=== PATIENT | female | born 1975 | race African-American/Black ===

== ENCOUNTER 2023-10-04 08:26 | Outpatient (REF) | payer OTHER, SELFPAY ==
[2023-10-04 08:54] LABS: MANUAL DIFF FLAG NO
[2023-10-04 09:30] LABS: Basophils Percent Auto 0.3 % (0-2); Eosinophils Absolute Auto 0.1 X10*3/uL (0.0-0.4); Eosinophils Percent Auto 4.4 % (0-4); Hematocrit 35.5 % (37.0-47.0); Hemoglobin 11.9 g/dl (12.0-16.0); Imm Gran Abs Auto 0.01 X10*3/uL (0.00-0.03); Imm Gran Pct Auto 0.3 % (0.0-0.4); Lymphocytes Absolute Auto 1.1 X10*3/uL (1.2-4.9); Lymphocytes Percent Auto 34.6 % (20-40); Mean Corpuscular HGB Conc 33.5 g/dl (31.0-35.0); Mean Corpuscular Hemoglobin 32.5 pg (27.0-33.0); Monocytes Absolute Auto 0.3 X10*3/uL (0.1-1.2); Monocytes Percent Auto 7.9 % (2-11); Neutrophils Absolute Auto 1.7 x10*3/uL (2.0-8.3); Neutrophils Percent Auto 52.5 % (45-73); Platelet Count 188 X10*3/uL (160-400); Red Blood Count 3.66 X10*6/uL (4.20-5.50); Red Cell Distribution Width 12.3 % (11.0-16.0); White Blood Count 3.2 X10*3/uL (4.8-10.8)
[2023-10-04 09:50] LABS: Sickle Cell Scr NEGATIVE (NEGATIVE)
[2023-10-04 10:03] LABS: Alanine Aminotransferase 10 U/L (0-31); Albumin Level 4.3 g/dL (3.5-5.0); Alkaline Phosphatase 55 U/L (39-117); Anion Gap 10 (12-20); Aspartate Amino Transferase 16 U/L (5-31); Bilirubin Total 0.5 mg/dL (0.0-1.0); Blood Urea Nitrogen 11 mg/dL (9-16); Calcium 9.3 mg/dL (8.4-10.2); Carbon Dioxide 23 mmol/L (22-29); Chloride 110 mmol/L (96-108); Estimated Glomerular Filt Rate > 60; Glucose Random 82 mg/dL (60-115); Iron 128 mcg/dL (30-160); Percent Iron Saturation 54 % (15-50); Potassium 4.2 mmol/L (3.3-5.1); Sodium 139 mmol/L (135-145); Total Iron Binding Capacity 238 mcg/dL (228-428); Total Protein 7.3 g/dL (6.5-8.0); Unsaturated Iron Binding 110 ug/dL
== END 2023-10-04 08:27 | disposition home or self-care (01) ==
LOC: HO.LAB 08:26
PROVIDERS: PCP Internal Medicine; Visit Provider Internal Medicine
DX: Z86.2 Personal history of diseases of the blood and blood-forming organs and certain disorders involving the immune mechanism (principal)
CPT/HCPCS: 36415; 80053; 83540; 85025; 85660

== ENCOUNTER 2023-10-25 08:59 | Outpatient (REF) | payer OTHER, SELFPAY ==
[2023-10-25 09:13] LABS: MANUAL DIFF FLAG NO
[2023-10-25 09:51] LABS: Basophils Percent Auto 0.6 % (0-2); Eosinophils Absolute Auto 0.2 X10*3/uL (0.0-0.4); Eosinophils Percent Auto 4.4 % (0-4); Hematocrit 39.2 % (37.0-47.0); Hemoglobin 12.9 g/dl (12.0-16.0); Imm Gran Abs Auto 0.01 X10*3/uL (0.00-0.03); Imm Gran Pct Auto 0.3 % (0.0-0.4); Lymphocytes Absolute Auto 1.5 X10*3/uL (1.2-4.9); Lymphocytes Percent Auto 40.8 % (20-40); Mean Corpuscular HGB Conc 32.9 g/dl (31.0-35.0); Mean Corpuscular Hemoglobin 32.2 pg (27.0-33.0); Mean Corpuscular Volume 97.8 fL (80.0-98.0); Monocytes Absolute Auto 0.3 X10*3/uL (0.1-1.2); Monocytes Percent Auto 8.5 % (2-11); Neutrophils Absolute Auto 1.7 x10*3/uL (2.0-8.3); Neutrophils Percent Auto 45.4 % (45-73); Platelet Count 187 X10*3/uL (160-400); Red Blood Count 4.01 X10*6/uL (4.20-5.50); White Blood Count 3.6 X10*3/uL (4.8-10.8)
== END 2023-10-25 09:00 | disposition home or self-care (01) ==
LOC: HO.LAB 08:59
PROVIDERS: PCP Internal Medicine; Visit Provider Internal Medicine
DX: Z86.2 Personal history of diseases of the blood and blood-forming organs and certain disorders involving the immune mechanism (principal)
CPT/HCPCS: 36415; 85025

== ENCOUNTER 2024-06-23 08:23 | Outpatient (AMB) | payer OTHER, SELFPAY ==
--- NOTE | 2024-06-23 08:24 | MHC.OFFVIS ---
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 Install And Repair Technician Required: No Rim Fire Priming Tool Setter: Rim Fire Priming Tool Setter Present (Carole) Accompanied by: Self / Same As Patient Allergies lidocaine Adverse Reaction (Verified 06/23/24 08:30) Seizure HPI Comments Details: Presenting for annual exam. No complaints. Last Pap/HPV was last year, no records available but according to patient had high-grade lesion, the patient is status post hysterectomy Last Mammogram was in 08/15 No Previous screening colonoscopy, the patient is scheduled in 09/16 [facility] Medical History (Updated 06/23/24 @ 08:40 by Jake Freeman MD) JULIA III (cervical intraepithelial neoplasia grade III) with severe dysplasia Surgical History H/O: hysterectomy Family History Paternal Aunt Breast cancer Paternal Aunt Cervical cancer Female Reproductive History Menstrual Total pregnancies: 2 Full term: 2 Ab induced: 1 Review of Systems Const All systems reviewed & are unremarkable except as noted in HPI and below Card Reports as per HPI and Reports no additional complaints Resp Reports as per HPI and Reports no additional complaints GI Reports as per HPI and Reports no additional complaints Reports as per HPI Physical Exam Vital Signs: Last Vital Signs BP 120/74 06/23/24 08:30 BMI result Body Mass Index 28.5 Const General: cooperative, healthy appearing and comfortable General: Yes bladder normal to palpation External Female Exam: No lesion Speculum Exam - Vagina: normal appearance of the vagina, normal vaginal discharge and not erythematous Speculum Exam - Cervix: Cervix absent Bimanual exam- vagina & uterus: bladder normal to palpation and uterus absent Bimanual Exam- Adnexa, other: Other (No masses detected) Assessment & Plan Assessment & Plan (1) Well woman exam: Code(s): Z01.419 - Encounter for gynecological examination (general) (routine) without abnormal findings Category: Medical Plan: Vaginal Co testing done since the patient has history of high-grade cervical lesion. Counseled the patient about the recommended dietary allowance of 1200 mg of Calcium & 600 IU of vitamin D. Mammogram ordered. The patient is scheduled with GI for screening colonoscopy in 09/15 . The patient was instructed to perform monthly self-breast exams and schedule annual exam in a year. All questions answered and the patient verbalized understanding. Orders: Orders MM tomosynthesis screening BI Today Z12.31 - Encounter for screening mammogram for malignant neoplasm of breast Coding Level of Care Code Est Pt Prev Care 40-64y(50716) Diagnoses Well woman exam Z01.419
[2024-06-23 08:30] VITALS: BP 120/74; BMI 28.5
== END 2024-06-23 08:47 | disposition home or self-care (01) ==
PROVIDERS: PCP Internal Medicine; Visit Provider Obstetrics & Gynecology
DX: Z01.419 Encounter for gynecological examination (general) (routine) without abnormal findings (principal)
CPT/HCPCS: 99396

== ENCOUNTER 2024-06-23 08:23 | Outpatient (REF) | payer OTHER, SELFPAY ==
[2024-06-23 13:54] LABS: HPV 16,18/45 See PAP report
== END 2024-06-23 08:24 | disposition home or self-care (01) ==
LOC: HO.LNP 08:23
PROVIDERS: PCP Internal Medicine; Visit Provider Obstetrics & Gynecology
DX: Z01.419 Encounter for gynecological examination (general) (routine) without abnormal findings (principal)
CPT/HCPCS: 87624; 88175

== ENCOUNTER 2024-06-30 08:34 | Outpatient (REF) | payer OTHER, SELFPAY ==
[2024-06-30 08:54] LABS: MANUAL DIFF FLAG NO
[2024-06-30 09:17] LABS: Basophils Percent Auto 0.5 % (0-2); Eosinophils Absolute Auto 0.1 X10*3/uL (0.0-0.4); Eosinophils Percent Auto 2.8 % (0-4); Hematocrit 36.1 % (37.0-47.0); Imm Gran Abs Auto 0.01 X10*3/uL (0.00-0.03); Imm Gran Pct Auto 0.3 % (0.0-0.4); Immature Retic Fraction 9.9 % (3.0-15.9); Lymphocytes Absolute Auto 1.2 X10*3/uL (1.2-4.9); Lymphocytes Percent Auto 31.3 % (20-40); Mean Corpuscular HGB Conc 33.2 g/dl (31.0-35.0); Mean Corpuscular Hemoglobin 32.4 pg (27.0-33.0); Mean Corpuscular Volume 97.6 fL (80.0-98.0); Mean Platelet Volume 9.8 fL (9.4-12.3); Monocytes Absolute Auto 0.3 X10*3/uL (0.1-1.2); Neutrophils Absolute Auto 2.2 x10*3/uL (2.0-8.3); Neutrophils Percent Auto 57.1 % (45-73); Platelet Count 229 X10*3/uL (160-400); Red Cell Distribution Width 13.4 % (11.0-16.0); Retic HGB Equivalent 35.9 pg (30.0-35.0); Reticulocyte Percent 2.3 % (0.5-1.8); Reticulocytes Absolute 0.084 X10*6/uL (0.026-0.095); White Blood Count 3.9 X10*3/uL (4.8-10.8)
[2024-06-30 09:36] LABS: Haptoglobin 10 mg/dL (35-250)
[2024-06-30 09:46] LABS: Alanine Aminotransferase 13 U/L (0-31); Albumin Level 4.4 g/dL (3.5-5.0); Alkaline Phosphatase 53 U/L (39-117); Anion Gap 12 (12-20); Aspartate Amino Transferase 19 U/L (5-31); Bilirubin Total 0.5 mg/dL (0.0-1.0); Blood Urea Nitrogen 12 mg/dL (9-16); Calcium 9.5 mg/dL (8.4-10.2); Carbon Dioxide 25 mmol/L (22-29); Chloride 105 mmol/L (96-108); Estimated Glomerular Filt Rate > 60; Glucose Random 80 mg/dL (60-115); Iron 92 mcg/dL (30-160); Percent Iron Saturation 37 % (15-50); Sodium 138 mmol/L (135-145); Total Iron Binding Capacity 247 mcg/dL (228-428); Total Protein 7.4 g/dL (6.5-8.0); Unsaturated Iron Binding 155 ug/dL
[2024-06-30 10:11] LABS: Ferritin 334 ng/mL (10-250)
[2024-06-30 10:13] LABS: Vitamin B12 522 pg/mL (200-900)
== END 2024-06-30 08:35 | disposition home or self-care (01) ==
LOC: HO.LAB 08:34
PROVIDERS: Absent Provider Internal Medicine Hematology; PCP Internal Medicine; Visit Provider Obstetrics & Gynecology
DX: D58.9 Hereditary hemolytic anemia, unspecified (principal); D70.9 Neutropenia, unspecified
CPT/HCPCS: 36415; 80053; 82607; 82728; 82746; 83010; 83540; 85025; 85045

== ENCOUNTER 2024-09-12 08:55 | Day surgery (SDC) | payer OTHER, SELFPAY ==
[2024-09-10 14:53] VITALS: BMI 28.0
[2024-09-12 09:36] VITALS: BP 105/68; PULSE 85; RESP 14; TEMP 37; O2SAT 99; BMI 26.2
[2024-09-12] MEDS: Lactated Ringers 1,000 ML 80 ML IVCONT (09:48)
--- NOTE | 2024-09-12 10:37 | P.CONAN_ITS ---
HPI - Anesthesia Eval Consult details Narrative: colon screen [facility] Active Problems Active Problems: All Active Problems Well woman exam (Acute) Past Medical History Medical History History of anemia Constipation JULIA III (cervical intraepithelial neoplasia grade III) with severe dysplasia Family History Family History Paternal Aunt Breast cancer Paternal Aunt Cervical cancer Family history of problems with anesthesia: No Surgical History Surgical History Hx of umbilical hernia repair H/O: hysterectomy History of Problems with Anesthesia: No Social History Social History Are you a primary long term acute care registered nurse to a significant other at home: No Do you presently have visiting nurse or other home services: No Patient Tobacco Use Status: Never used Tobacco Use of substances other than those prescribed or required for medical reasons: No Have you been hit, kicked, punched, or otherwise hurt by someone within the past year? If so, by whom?: No Are you DNR?: No Advance Directives: No Advance Directives Information Provided: Yes Recently lost weight without trying: No Patient : No Meds Allergies Allergy/AdvReac Type Severity Reaction Status Date / Time lidocaine AdvReac Seizure Verified 09/12/24 09:28 Active Medications: Current Medications Lactated Ringer's (Lr) 1,000 mls @ 80 mls/hr IVCONT .[id number] [facility] Last Admin: 09/12/24 09:48 Dose: 80 mls/hr Sodium Biphosphate/Sodium Phosphate (Sodium Phosphate,[place]-Dibasic 133 Ml Enema) 133 ml [place] ONCE PRN PRN Reason: Poor Colonoscopy Prep Results Home Medications ?Medication ?Instructions ?Recorded ?Confirmed ?Last Taken ?Type folic acid 1 mg tablet 1 mg PO DAILY 06/23/24 09/10/24 Unknown History Exam Height,Weight and Vital Signs: Height 5 ft 5.5 in Weight 72.575 kg Last Vital Signs Temp 98.6 F 09/12/24 09:36 Pulse 85 09/12/24 09:36 Resp 14 02/21/25 09:36 BP 105/68 09/12/24 09:36 Pulse Ox 99 09/12/24 09:36 O2 Del Method Room Air 09/12/24 09:36 Airway Mallampati Class: II TM Dist: >3cm Neck ROM: Full Heart: rrr Lungs: cta Assessment and Plan Assessment Anesthesia Assessment: Anesthesia Plan Discussed Final Anesthetic Review Family History of Problems with Anesthesia: No History of Problems with Anesthesia: No NPO: Yes ASA Class: I Final Preanesthetic Review: No Changes in Pt Med Stat, Meds/Allgs Chart Reviewed, Consent Obtained/Reviewed and Anes Risks/Benef Reviewed Patient Risk: Low Procedure Risk: Low Anesthetic Plan Anesthetic Plan: MAC: Disposition: Standard PACU
[2024-09-12 11:34] VITALS: BP 92/61; PULSE 100; RESP 12; TEMP 36.2; O2SAT 97
--- NOTE | 2024-09-12 11:39 | PM.OP ---
Brief Operative Note Date of Service: 09/12/24 Pre-op diagnosis: Screening Post-op diagnosis: other (Diverticulosis) Procedure: Colonoscopy to the cecum and TI Surgeon: Hector Pierson MD Anesthesia: MAC Was an Wrecker Operator used for this Procedure?: No Estimated blood loss (mL): 0 Pathology: none sent Condition: stable Disposition: PACU
[2024-09-12 11:49] VITALS: BP 111/79; PULSE 100; RESP 15; TEMP 36.3; O2SAT 98
--- NOTE | 2024-09-12 22:03 | OP_ITS ---
DATE OF SERVICE: 09/12/2024 SURGEON: Hector Pierson MD INDICATIONS: The patient presents for evaluation of colorectal cancer screening. Full consent has been obtained from her for this, including risks of bleeding and perforation. PREOPERATIVE DIAGNOSIS: Colorectal cancer screening. POSTOPERATIVE DIAGNOSIS: PROCEDURE PERFORMED: Colonoscopy to the cecum and terminal ileum. ESTIMATED BLOOD LOSS: COMPLICATIONS: ANESTHESIA: Medication used; monitored anesthesia care. ASSISTANTS: SPECIMENS: POSTOPERATIVE DIAGNOSES: Colorectal cancer screening, occasional sigmoid diverticulosis, and small internal hemorrhoids. DESCRIPTION OF PROCEDURE: The patient was placed in the left lateral decubitus position. The digital rectal exam revealed no abnormalities. The Olympus video pediatric colonoscope was entered into the rectum and advanced easily to the cecum, although, the sigmoid colon was rather redundant consistent with her chronic constipation. Once in the cecum, I did identify normal-appearing cecal pouch with appendiceal orifice and a normal-appearing ileocecal valve. The terminal ileum was cannulated and appeared normal. The scope was withdrawn back in the colon. The entire cecum and ileocecal valve appeared normal. The scope was slowly withdrawn assessing all mucosal surfaces carefully. Preparation was excellent after her two day bowel prep. I did not visualize any sign of polyps, colitis, nor angiodysplasia. There was a mild amount of sigmoid diverticulosis. In the rectum, scope was retroflexed visualizing internal hemorrhoids, but no other pathology. The rectal mucosa appeared normal. The scope was straightened and withdrawn from the patient. She tolerated the procedure well and was returned to recovery area in stable condition. IMPRESSION: 1. Mild diverticulosis. 2. Small internal hemorrhoids. PLAN: Given today's negative exam and negative family history, I would recommend a followup coloscopy in 10 years. She was advised to use a regimen of some MiraLax and/or Metamucil on a regular basis to help with her constipation and to see me again as needed. Hector Pierson MD RMW/CHAPARROL / [id number] MTDD
== END 2024-09-12 12:21 | disposition home or self-care (01) ==
PROVIDERS: PCP Internal Medicine; Visit Provider Internal Medicine
PROC: 0DJD8ZZ Inspection of Lower Intestinal Tract, Via Natural or Artificial Opening Endoscopic (ICD-10-PCS; CPT 45378; principal; 2024-09-12 11:00)
DX: Z12.11 Encounter for screening for malignant neoplasm of colon (principal); K57.30 Diverticulosis of large intestine without perforation or abscess without bleeding; K64.8 Other hemorrhoids; K59.09 Other constipation; Z79.899 Other long term (current) drug therapy; Z90.711 Acquired absence of uterus with remaining cervical stump; Z98.890 Other specified postprocedural states
CPT/HCPCS: 45378; J2704

== ENCOUNTER 2024-10-06 10:31 | Outpatient (REF) | payer OTHER, SELFPAY ==
--- OUTSIDE RECORDS SUMMARY | 2024-10-06 11:52 | XMS_ITS ---
Author Organization Tino Mullins MD Address [address] [place] [address] [place] [phone] Care Team Providers Care Celery Tier Name Role Phone Tino Mullnis Primary Care Provider REASON FOR VISIT Found lump under ? arm Encounters Encounter Location Date Provider Diagnosis Tino Mullins MD [address] [place] [address] [place] [id number] 02/28/2024 Tino Mullins Plan Of Treatment Next Appt Details Provider Name:Tino Britt ier, 12/25/2024 08:00:00 AM, [address] [place] [address], Suite [facility], [place], [place], [phone], Provider Name:Tino Britt ier, 01/01/2025 01:00:00 PM, [address] [place] [address], [place] [address], [place], [place], [phone], Progress Notes * Sean PEREZBienvenidoB:1975 ( 48 yo F)Acc No.[id number]:02/28/2024 Patient:?Di Perez :1975???Age:48 Y???Sex:Female Address:[address] [place] [address], [address] * true * Date:? Generated for Printi ng/Faxing/eTransmitting on:?10/06/2024 11:51 AM EDT
--- OUTSIDE RECORDS SUMMARY | 2024-10-06 11:52 | XMS_ITS | Patient Health Record ---
Author Organization Tino Mullins MD Address [address] [place] [phone] Care Team Providers Care Transportation Security Screener Name Role Phone Tino Mullins Primary Care Provider Allergies Allergen (clinical drug ingredient) Drug/Non Drug Allergy documented on EMR Reaction Allergy Type Onset Date Status lidocaine Lidocaine seizure Drug Allergy Active Results Component Value Reference Range Notes Pap Smear Reviewed date:06/26/2024 03:28:26 PM Interpretation: Performing Lab:[facility], [address] [place] [id number] Notes/Report: Name: Lavon,Di Guzman Age/Sex: 49/F : 1975 Unit#: [id number] Attend Dr: Jake Freeman MD Re06/23/24 Status : DEP REF Location: [facility] Disch: SPEC : [id number] REC STATUS: LISA GLASS NUM: [id number] MIGUEL: 06/23/[address] [facility] [address]: Jake Freeman MD ENTERED: 06/23/24-13 43 SP TYPE: Pap Smr OTHR DR: Tino Mullins MD ORDERED: Pap Smear Interpretation Satisfactory for evaluation. Negative for intraep ithelial lesion or malignancy. HPV High Risk: Negative HPV Genotyping 16: Negative HPV Genotyping 18: Negative Clinical Information LMP: Hysterectomy Previous PAP test: U nknown date/findings Material Received ThinPrep-Vaginal Copies To: Tino Mullins MD [facility] [address] [place] [address] Jake Freeman MD [facility] [address] [place] [address] Signed (si day[place] on file) PIO Mazariegos (ASCP) 06/26/24 1241 END OF REPORT Reason For Referral Reason colon cancer screeni ng needs colonoscopy Diagnosis 1 Colon cancer screeni ng (Z12.11) Referral Organization Tino Mullins MD Referring Provider First Name Tino Referring Provider Last Name Harpreet Referring Provider Speciality Internal M edicine Referred Provider Hector Mazariegos Referred Provider Specialty Gastroentero logy General Notes Christine Wright 12:02:43 PM EDT > info faxed , Christine Wright 01/04/2024 08:19:56 AM EDT > info mailed to patient, Carleen Chavez 06/23/2024 02:35:00 PM EST > OFFICE NOTES RECD Referral Priority Routine Referral Appointment Date 05/14/2024 Reason per 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, was told a doctor to doctor must be sent Diagnosis 1 H/O: hysterectomy (Z 90.710) Referral Organization Tino Mullins MD Referring Provider First Name Tino Referring Provider Last Name Harpreet Referring Provider Speciality Internal edicine Referred Provider JAKE FREEMAN Referred Provider Specialty OB - Gynecol ogy General Notes Christine Wright 11:22:06 AM EDT > patient will be taking care of her own appt Referral Priority Routine Medications Medication SIG (Take, Route, Frequency, Duration) Notes Start Date End Date Status Folic Acid 400 MCG 1 tablet Orally Once a day for 30 day(s) Active Triamcinolone Acetonide 0.1 % 1 application Externally Once a day for 14 days 12/28/2023 Active Amoxicillin-Pot Clavulanate 875-125 MG 1 tablet Orally every 12 hrs for 10 days 08/19/2024 Active Social History Tobacco Use: Social History Observation Description Date Details (start date - stop date) Never Smoker NA - NA Tobacco Use/Smoking Question Answer Notes Patient is a nonsmoker Additional Findings: Tobacco Non-User Cu rrent non-smoker, currently using no form of tobacco Alcohol Screen Question Answer Notes Did you have a drink containing alcohol in the p ast year? No Points 0 Interpretation Negative Problems Problem Type SNOMED Code ICD Code Onset Dates Problem Status W/U Status Risk Notes Problem 897800447 Neutropenia, unspecified type (D70.9) Active confirmed Problem 906382399 H/O: hysterectom y (Z90.710) Active confirmed Problem 361035292 History of anemi a (Z86.2) Active confirmed Vital Signs Blood pressure diastolic 58 mm Hg 12/28/2023 Height 67 in 08/19/2024 weight at home is 170 BP not taken no temp Blood pressure systolic 94 mm Hg 12/28/2023 Weight 170 lbs 08/19/2024 weight at home is 170 BP not taken no temp BMI 26.62 kg/m2 08/19/2024 weight at home is 170 BP not taken no temp Encounters Encounter Location Date Provider Diagnosis Tino Mullins MD [address] [place] [phone] 12/28/2023 Tino Mullins History of anemia Z86.2 ; Annual physical exam Z00.00 ; Neutropenia, unspecified type D70.9 ; Mild eczema L30.9 and Depression screening Z13.31 Tino Mullins MD [address] [place] [address] Drive [address] [place] [phone] 10/25/2023 Tino Mullins MD [address] [place] [address] Drive [address] [place] [id number] 02/28/2024 Tino Mullins MD [address] [place] [address] Drive [address] [place] [phone] 08/19/2024 Tino Mullins Acute non-recurrent maxillary sinusitis J01.00 Assessments Encounter Date Diagnosis (ICD Code) Assessment Notes Treatment Notes Treatment Clinical Notes Section Notes 12/28/2023 History of anemia (ICD-10 - Z86.2) stable, will continue to monitor 12/28/2023 Annual physical exam (ICD-10 - Z00.00) labs reviewed and discussed with patient, needs colonoscopy appt with dr mazariegos or hu 08/19/2024 Acute non-recurrent maxillary sinusitis (ICD-10 - J01.00) patient verbalized understandingof medicationand directions for use 12/28/2023 Neutropenia, unspecified type (ICD-10 - D70.9) followed by hematology at [facility] 12/28/2023 Mild eczema (ICD-10 - L30.9) patient verblaized understanding of medicaton and directions for use 12/28/2023 Depression screening (ICD-10 - Z13.31) negative screen Plan Of Treatment Next Appt Details Provider Name:Tino coburn, 12/25/2024 08:00:00 AM, [address] [place] [address], Suite [facility], [place], [place], [phone], Provider Name:Tino coburn, 01/01/2025 01:00:00 PM, [address], [address], [place], [place], [phone], Insurance Providers Payer Name Payer Address Payer Phone Subscriber Number Group Number Insured Name Patient Relationship to Insured Coverage Start Date Coverage End Date [employer] [address] [address] [place] [phone] [id number] Di Perez Self - patient is the insured Medical (General) History Medical History History ICD Code brother and father of non hodkins l ymphoma braca negative
--- OUTSIDE RECORDS SUMMARY | 2024-10-06 11:52 | XMS_ITS ---
Author Organization [facility] Address [address] [place] [phone] Care Team Providers Care Level Vial Inspector Name Role Phone Harpreet ALEGRE, Tino Primary Care Provider Hector Vallejo Unavailable [phone] REASON FOR VISIT screening Encounters Encounter Location Date Provider Diagnosis [facility] [address] [place] [phone] 09/12/2024 Hector Pierson Plan Of Treatment No Information Progress Notes * EMILY VILLATOROADOB:1975 ( 49 yo F)Acc No.[id number]:09/12/2024 COLON WITH MAC Patient:?NELLIE VILLATORO Provider:?Hector Pierson MD :1975???Age:49 Y???Sex:Female D ate:09/12/2024 Address:[address] [place], [place] [phone] Pcp:Tino Mullins MD Subjective: * Chief Complaints: * ???1. Screening. * Medical History:? Objective: * Vitals:? Assessment: Plan: * Treatment: * * The named appointment provid er may or may not be the originator of this progress note, and it is not deemed complete until electronically signed by the appointment provider. Sign off status: Pending * Provider:?Hector Pierson MD Date:? 025 Generated for David woodward/Fabillyg/eTransmitting on:?10/06/2024 11:52 AM EDT
--- OUTSIDE RECORDS SUMMARY | 2024-10-06 11:52 | XMS_ITS ---
Author Organization [facility] Address [address] [place] [address] Care Team Providers Care [facility] Program Associate Name Role Phone Tino Mullins MD Primary Care Provider Hector Vallejo Unavailable [phone] Allergies No Known Allergies REASON FOR VISIT Patient presents today for a screening colon Medications Medication SIG (Take, Route, Fr equency, Duration) Notes Start Date End Date Status Folic Acid 400 MCG 1 tablet Orally Once a day for 30 day(s) Active Immunizations Vaccine Route Administration Date Status Comme nts Influenza Unknown 05/14/2024 Refused Social History Tobacco Use: Social History Observation Description Date Details (start date - stop date) Never Smoker NA - NA Tobacco Use/Smoking Question Answer Notes Patient is a nonsmoker Alcohol Screen Question Answer Notes Did you have a drink containing alcohol in the p ast year? No Points 0 Interpretation Negative Section Notes: Nonsmoker; no alcohol Problems Problem Type SNOMED Code ICD Code Onset Dates Problem Status W/U Status Risk Notes Problem Chronic constipation (207517597) Chronic constipation (K59.09) Active confirmed Problem Colon cancer screening (234837974) Colon cancer screening (Z12.11) Active confirmed Vital Signs Temperature 98.0 degrees Fahrenheit 05/14/20 24 Blood pressure systolic 000 mm Hg 05/14/20 24 Blood pressure diastolic 00 mm Hg 024 Height 5 ft 5.5 in in 05/14/2024 Weight 171 lb 4 oz lbs 05/14/2024 BMI 28.06 kg/m2 05/14/2024 Encounters Encounter Location Date Provider Diagnosis [facility] [address] [place] [address] 05/14/2024 Hector Pierson Chronic constipation K59.09 and Colon cancer screening Z12.11 Assessments Encounter Date Diagnosis (ICD Code) Assessment Notes Treatment Notes Treatment Clinical Notes Section Notes 05/14/2024 Chronic constipation (ICD-10 - K59.09) For Constipation: Start using 2 Metamucil fiber pills with a big glass of water once or twice a day regularly Start using 1 dose of Miralax once or twice a day as well Eat a healthy high fiber diet and drink a lot of water Overall, Di appears quite well. In regard to the chronic constipation this does not seem to be worrisome given its long-standing nature and her excellent clinical appearance. Nonetheless, I did advise her that it would be a good idea to try and improve her bowel movement regularity to some degree. I have given her instructions to start a regimen of some Metamucil and MiraLax once or twice a day on a regular basis along with a healthy and high-fiber diet with plenty of fluids. I did advise her to keep me posted as to how she is doing with that. If things continue to be problematic in this regard we can always consider some medication such as Linzess. I did recommend a screening colonoscopy given her age and otherwise good clinical appearance. We did review the rationale for this in regard to colon cancer prevention. Full consent was obtained for this, including risks of bleeding and perforation. The procedure will be done with monitored anesthesia care. She will have a full two-day prep for the procedure given her chronic constipation. Di was comfortable with this plan. Thank you again for allowing me to participate in Di's care. I shall continue to keep you advised of her progress. 05/14/2024 Colon cancer screening (ICD-10 - Z12.11) Overall, Di appears quite well. In regard to the chronic constipation this does not seem to be worrisome given its long-standing nature and her excellent clinical appearance. Nonetheless, I did advise her that it would be a good idea to try and improve her bowel movement regularity to some degree. I have given her instructions to start a regimen of some Metamucil and MiraLax once or twice a day on a regular basis along with a healthy and high-fiber diet with plenty of fluids. I did advise her to keep me posted as to how she is doing with that. If things continue to be problematic in this regard we can always consider some medication such as Linzess. I did recommend a screening colonoscopy given her age and otherwise good clinical appearance. We did review the rationale for this in regard to colon cancer prevention. Full consent was obtained for this, including risks of bleeding and perforation. The procedure will be done with monitored anesthesia care. She will have a full two-day prep for the procedure given her chronic constipation. Di was comfortable with this plan. Thank you again for allowing me to participate in Di's care. I shall continue to keep you advised of her progress. Plan Of Treatment Treatment Notes Assessment Notes Chronic constipation For Constipation: Start using 2 Metamucil fiber pills with a big glass of water once or twice a day regularly Start using 1 dose of Miralax once or twice a day as well Eat a healthy high fiber diet and drink a lot of water Future Test Test Name Order Date COLONOSCOPY 05/14/2024 Next Appt Details Follow Up: prn, Reason: Progress Notes * EMILY VILLATOROADOB:1975 ( 49 yo F)Acc No.[id number]:05/14/2024 Progress Notes Patient:?DI VILLATORO Provider:?Hector Pierson MD :1975???Age:49 Y???Sex:Female D ate:05/14/2024 Address:[address] [place] [address] Pcp:Tino Mullins MD Subjective: * Chief Complaints: * ???Patient presents today fo r a screening colon * HPI: ???incontinence:? I saw Di in consultation today in regard to further evaluation of her chronic constipation and discussion of colorectal cancer screening. ?As you know, Di is a healthy 41-year-old female who presently feels well. She does have a very long-standing history of chronic constipation with a bowel movement about once a week. She does not take any regular bowel regimen but will take occasional things such as prune juice or other whde-evq-obvdypg remedies to help with the bowel movement. She denies any hematochezia, melena, abdominal pain, nausea, nor vomiting. She has never had a colonoscopy. She denies any known family history of colon cancer. ?She enjoys a good appetite. She denies any significant heartburn, dysphagia, early satiety, nor any unintentional weight loss. She has not noticed any signs of jaundice. ?Labs earlier this year showed a hemoglobin 12.9 with a normal MCV, normal chemistries and renal function, a normal iron level of 128, an iron saturation of 54%, and normal LFTs. * ROS:?General/Constitutional:?Change in appetite?denies.?Chills?denies.?Fatigue?denies.?Ophthalmologic:?Comments?all negative.?ENT:?Comments?all negative.?Respiratory:?hemoptysis?denies.?Cough?denies.?Cardiovascular:?Chest pain?denies.?Orthopnea?denies.?Gastrointestinal:?Comments?See HPI for details.?Genitourinary:?Hematuria?denies.?Dysuria?denies.?Musculoskeletal:?Painful joints?denies.?Weakness?denies.?Skin:?Itching?denies.?Rash?denies.?Neurologic:?Headache?denies.?Seizures?denies.?Psychiatric:?Comments?all negative.? * Medical History:? * Surgical History:?Partial hy sterectomy Umbilical hernia * Hospitalization/Major Diagno stic Procedure:?No Hospitalization History. * Family History:?Father: dece ased.?Mother: alive, diagnosed with HTN (hypertension), Diabetes.? No family history of colon cancer or liver cancer. * Social History:?Tobacco Use:?Tobacco Use/Smoking?Patient is a?nonsmoker.?Drugs/Alcohol:?Alcohol Screen?Did you have a drink containing alcohol in the past year??No,?Points?0,?Interpretation?Negative.?Miscellaneous:?Marital status: single. 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 ???Nonsmoker; no alcohol. * Medications:?TakingFolic Aci d 400 MCG Tablet 1 tablet Orally Once a dayMedication List reviewed and reconciled with the patientTaking Folic Acid 400 MCG Tablet 1 tablet Orally Once a dayMedication List reviewed and reconciled with the patient * Allergies:?N.K.D.A.yes[Aller gies Verified] Objective: * Vitals:?Wt: 171 lb 4 oz, Ht: 5 ft 5.5 in, BMI:28.06 Index, BP: 000/00 mm Hg, Temp: 98.0. * Examination: ???General Examination: ?GENERAL APPEARANCE:?pleasant, well nourished, well developed, in no acute distress.?EYES:?sclera non-icteric.?ORAL CAVITY:?mucosa moist.?NECK/THYROID:?no cervical lymphadenopathy, neck supple.?SKIN:?nonjaundiced, no spider angiomata.?HEART:?S1, S2 normal.?LUNGS:?clear to auscultation bilaterally.?ABDOMEN:?normal bowel sounds, no guarding or rigidity, no guarding or rigidity, no masses palpable, soft, nontender, nondistended.?EXTREMITIES:?no edema.?NEUROLOGIC:?alert and oriented.? Assessment: * Assessment: 1.?Chronic constipation - K5 9.09 (Primary)?2.?Colon cancer screening - Z12.11? Overall, Di appears quit e well. In regard to the chronic constipation this does not seem to be worrisome given its long-standing nature and her excellent clinical appearance. Nonetheless, I did advise her that it would be a good idea to try and improve her bowel movement regularity to some degree. I have given her instructions to start a regimen of some Metamucil and MiraLax once or twice a day on a regular basis along with a healthy and high-fiber diet with plenty of fluids. I did advise her to keep me posted as to how she is doing with that. If things continue to be problematic in this regard we can always consider some medication such as Linzess. I did recommend a screening colonoscopy given her age and otherwise good clinical appearance. We did review the rationale for this in regard to colon cancer prevention. Full consent was obtained for this, including risks of bleeding and perforation. The procedure will be done with monitored anesthesia care. She will have a full two-day prep for the procedure given her chronic constipation. Di was comfortable with this plan. Thank you again for allowing me to participate in Di's care. I shall continue to keep you advised of her progress. Plan: * Treatment: 2.?Colon cancer screening?Procedure: COLONOSCOPY (Ordered for 05/14/2024) * Immunizations:? Influenza (Not administered - Refused: Patient decision) * Procedure Codes:?3017F COLOR ECTAL CA SCREEN DOC VCG3051Y TOBACCO [id number] BP SCR NOT PRFRM REC REASON NOS * Preventive Medicine:? ??Counseling:?Care goal follow-up plan:?Above Normal BMI Follow-up?Giving encouragement to exercise,?BMI management provided?Yes.? * Follow Up:?prn * * Sign off status: Completed true * Provider:?Hector Pierson MD Date:? 024 Generated for David woodward/Torey/eTindiasmitting on:?10/06/2024 11:51 AM EDT History and Physical Notes * HPI (History of Present Illness) Category Sub-Category Detail Notes Category Not es incontinence I saw Di in consultation today in regard to further evaluation of her chronic constipation and discussion of colorectal cancer screening. As you know, Di is a healthy 41-year-old female who presently feels well. She does have a very long-standing history of chronic constipation with a bowel movement about once a week. She does not take any regular bowel regimen but will take occasional things such as prune juice or other ivbb-xpu-uovshgu remedies to help with the bowel movement. She denies any hematochezia, melena, abdominal pain, nausea, nor vomiting. She has never had a colonoscopy. She denies any known family history of colon cancer. She enjoys a good appetite. She denies any significant heartburn, dysphagia, early satiety, nor any unintentional weight loss. She has not noticed any signs of jaundice. Labs earlier this year showed a hemoglobin 12.9 with a normal MCV, normal chemistries and renal function, a normal iron level of 128, an iron saturation of 54%, and normal LFTs. Examination Category Sub-Category Detail Notes Category Not es General Examination GENERAL APPEARANCE: pleasant , well nourished, well developed, in no acute distress HEAD: EYES: sclera non-icteric EARS: NOSE: THROAT: NECK/THYROID: no cervical lymphade nopathy, neck supple HEART: S1, S2 normal CHEST: LUNGS: clear to auscultatio n bilaterally ABDOMEN: normal bowel sounds, no guarding or rigidity, no guarding or rigidity, no masses palpable, soft, nontender, nondistended NEUROLOGIC: alert and oriented SKIN: nonjaundiced, no spi deni angiomata EXTREMITIES: no edema PERIPHERAL PULSES: BACK: BREASTS: MUSCULOSKELETAL: MALE GENITOURINARY: LYMPH NODES: RECTAL EXAM: FEMALE GENITOURINARY: ORAL CAVITY: mucosa moist
--- OUTSIDE RECORDS SUMMARY | 2024-10-06 11:52 | XMS_ITS | Clinical Summary ---
Author Organization [facility] Address [address] [place] [address] Care Team Providers Care Bonbon Cream Warmer Name Role Phone Blanca Perez MD Primary Care Provider Surgical History Surgery Date Site/Laterality Comments HERNIA REPAIR PROCEDURE: HISTORICAL HERNIA REPAIR/UMB; COMMENT: age 3 OTHER SURGICAL HISTORY PROCEDURE: ---- OTHER ----; COMMENT: I&D left forearm Medical History Medical History Date Comments Family history of breast cancer DX:Family history of breast cancer; COMMENT: Pt myRisk negative 07/2016 Family history of ovarian cancer DX:Family history of ovarian cancer; COMMENT: PtmyRisk negative 07/2016 Family History Medical History Relation Name Comments Breast cancer Aunt 1 p 42 paternal aunt; Other: ovarian cancer Aunt 2 patern al aunt Asthma Brother 1 Other: non hodgkins lymphoma Brother 2 2013 Leukemia Brother 3 -same brother as #8 Other: non hodgkins lymphoma Father Diabetes Mother Other: Thyroid Cancer Mother Ovarian cancer Other 1 paternal firs t cousin-dx in her 20s- Leukemia Other 2 paternal first cousin Other: brain tumor Sister Prostate cancer Uncle paternal unc le Colon cancer Neg Hx Relation Name Status Comments Aunt 1 p 42 Aunt 2 Brother 1 Brother 2 Brother 3 Father NHL Mother Alive dm, thyroid can cer, Other 1 Other 2 Sister Uncle Social History Tobacco Use Types Packs/Day Years Used Date Smoking Tobacco: Never Smokeless Tobacco: Never Alcohol Use Standard Drinks/Week Comments No 0 (1 standard drink = 0.6 oz pur e alcohol) Comments Unknown Sex and Gender Information Value Date Recorded Sex Assigned at Not on file Legal Sex Female 8:19 PM EST Gender Identity Not on file Sexual Orientation Not on file Obstetrics History Plan of Treatment Health Maintenance Due Date Last Done Comments Hepatitis B Vaccines (1 of 3 - 19+ 3-dose series) 1995 Cervical Cancer Screening: Pap Smear 05/26/2021 05/26/2020 DTaP,Tdap,and Td Vaccines (7 - Td or Tdap) 10/25/2021 10/26/2011, 02/08/2010, 10/01/1978, Additional history exists Breast Cancer Screening 05/17/2022 05/17/20, 05/12/2019, 05/08/2018, Additional history exists Colorectal Cancer Screening: Colonoscopy 06/24/2022 Depression Screening 06/24/2022 HIV Screening 06/24/2022 Hepatitis C Screening 06/24/2022 Social Influencers of Health Screening 06/24/2022 COVID-19 Vaccine ( season) 2024 Influenza Vaccine (#1) 2024 IPV Vaccines Completed 12/27/1981, 02/20, 07/03/1977, Additional history exists Varicella Vaccines Aged Out 02/08/2010 No longer eligible based on patient's age to complete this topic HIB Vaccines Aged Out No longer eligi ble based on patient's age to complete this topic HPV Vaccines Aged Out No longer eligi ble based on patient's age to complete this topic Hepatitis A Vaccines Aged Out No long er eligible based on patient's age to complete this topic MMR Vaccines Aged Out No longer eligi ble based on patient's age to complete this topic Meningococcal ACWY Vaccine Aged Out N o longer eligible based on patient's age to complete this topic Meningococcal B Vacine Aged Out No lo nger eligible based on patient's age to complete this topic Pneumococcal Vaccine: Pediatrics (0 to 5 Years) and At-Risk Patients (6 to 64 Years) Aged Out No longer eligible based on patient's age to complete this topic RSV Immunization Patients Under 20 months Aged Out No longer eligible based on patient's age to complete this topic Procedures Procedure Name Priority Date/Time Associated Diagnosis Comments PAP SMEAR Routine 05/26/2020 SCR MAMMO BI INCL CAD Routine 05/17/2020 5:22 PM EDT Encounter for other screening for malignant neoplasm of breast from Last 3 Months or Most Recently Relevant to Health Maintenance Results * Pap smear (05/26/2020) 05/26/2020 Narrative HISTORICAL TESTING LAB RESULTING AGENCY - 06/04/2020 3:45 PM EST [id number] THINPREP PAP, IMAGED: LOW-GRADE SQUAMOUS INTRAEPITHELIAL LESION (LSIL) . COLEMAN GAYTAN , PIO(ASCP) (CASE SCREENED 06 01 2020) HUBERT SANDS M.D. , PATHOLOGIST (CASE ELECTRONICALLY SIGNED 06 03 2020) RESULT OF APTIMA HIGH RISK HPV ASSAY: HIGH RISK HPV: ??POSITIVE (SEROTYPES 16,18,31,33,35,39,45,51,52,56,58,59,66,68) RESULTS OF APTIMA HPV 16 AND 18/45 GENOTYPE ASSAY: HPV 16: ??NEGATIVE HPV 18/45: ??NEGATIVE COMPLETED ON 2020-06-01 ADEQUACY: SATISFACTORY ENDOCERVICAL/TRANSFORMATION ZONE COMPONENT PRESENT. SOURCE: THINPREP PAP HPV ANY DX: ??REFLEX 16 AND 18, CERVICAL, IMAGED CLINICAL INFORMATION: HPV ANY DIAGNOSIS. PAP HX NEG, LMP 05/11/20, Z12.4 Thony Sharp DO LAB CYTOLOGY ORDERABLES Final Result HISTORICAL TESTING LAB RESULTING AGENCY * SCR MAMMO BI INCL CAD (05/17/2020 5:22 PM EDT) Anatomical Region Laterality Modality Radiographic Cherelle ging 05/12/2019 5:50 PM EDT Narrative 05/18/2020 11:06 AM EDT This is a summary report. The complete report is available in the patient's medical record. If you cannot access the medical record, please contact the sending organization for a detailed fax or copy. Full field digital screening mammography, reviewed with CAD and compared to previous mammograms dating back to 04/25/2016 with most recent of 05/12/2019. The breast tissue is heterogeneously dense, limiting sensitivity. No suspicious mass, architectural distortion or suspicious calcifications are identified. IMPRESSION: : Dense breast tissue, limiting the sensitivity of mammography. No mammographic evidence of malignancy. BIRADS 1-Negative; N. 5 year breast cancer risk assessment 0.8 % Lifetime breast cancer risk assessment 9.4 % Breast cancer risk category Low (<15%) Procedure Note Radha William MD - 07/11/2022 This is a summary report. The complete report is available in thepatient's medical record. If you cannot access the medical record, pleasecontact the sending organization for a detailed fax or copy. Full field digital screening mammography, reviewed with CAD and comparedto previous mammograms dating back to 04/25/2016 with most recent of05/12/2019. The breast tissue is heterogeneously dense, limitingsensitivity. No suspicious mass, architectural distortion or suspiciouscalcifications are identified. IMPRESSION: : Dense breast tissue, limiting the sensitivity of mammography. Nomammographic evidence of malignancy. BIRADS 1-Negative; N. 5 year breast cancer risk assessment 0.8 % Lifetime breast cancer risk assessment 9.4 % Breast cancer risk category Low (<15%) Jacquelyn Montes CNM IMG XR PROCEDURES Final Result from Last 3 Months or Most Recently Relevant to Health Maintenance Care Teams Bonbon Cream Warmer Relationship Specialty Start Date End Date Blanca Perez MD [address] [place] [address] PCP - General Internal Medicine 08/17/11
--- OUTSIDE RECORDS SUMMARY | 2024-10-06 11:52 | XMS_ITS | Patient Health Record ---
Author Organization [facility] Address [address] [place] [address] Care Team Providers Care Real Time Analyst Name Role Phone Tino Mullins MD Primary Care Provider Hector Vallejo [phone] Allergies No Known Allergies Reason For Referral No Information Medications Medication SIG (Take, Route, Fr equency, [...] Problem Status W/U Status Risk Notes Problem Colon cancer screening (751213623) Colon cancer screening (Z12.11) Active confirmed Problem Chronic constipation (630360991) Chronic constipation (K59.09) Active confirmed Vital Signs Temperature 98.0 degrees Fahrenheit 05/14/2024 Blood pressure diastolic 00 mm Hg 05/14/2024 Height 5 ft 5.5 in in 05/14/2024 Blood pressure systolic 000 mm Hg 05/14/2024 Weight 171 lb 4 oz lbs 05/14/2024 BMI 28.06 kg/m2 05/14/2024 Encounters Encounter Location Date Provider Diagnosis [facility] [address] [place], [place] [id number] 09/12/2024 Hcetor Pierson [facility] [address] [place] [address] 05/14/2024 Hector Pierson Chronic constipation K59.09 and Colon cancer screening Z12.11 Assessments Encounter Date Diagnosis (ICD Code) Assessment Notes Treatment Notes Treatment Clinical Notes Section Notes 05/14/2024 Colon cancer screening (ICD-10 - Z12.11) [...] keep you advised of her progress. 05/14/2024 Chronic constipation (ICD-10 - K59.09) For [...] advised of her progress. Plan Of Treatment Future Test Test Name Order Date COLONOSCOPY 05/14/2024 Insurance Providers Payer Name Payer Address Payer Phone Subscriber Number Group Number Insured Name Patient Relationship to Insured Coverage Start Date Coverage End Date [employer] [place] [address] [address] [place] [address] [id number] DI VILLATORO Self - patient is the insured Medical (General) History Medical History History ICD Code Anemia due to previous heavy menses---titus d partial hysterectomy Constipation Denies SD,DM,CVA,Lung disease,renal dise ase Surgical History Surgery Date(Month/Year) Partial hysterectomy Umbilical hernia
--- OUTSIDE RECORDS SUMMARY | 2024-10-06 11:52 | XMS_ITS ---
Author Organization Tino Mullins MD Address [address] [place], [place] [id number] Care Team Providers Care Engineer Steam Name Role Phone Tino Mullins Primary Care Provider [phone] Allergies Allergen (clinical drug ingredient) Drug/Non Drug Allergy documented on EMR Reaction Allergy Type Onset Date Status lidocaine Lidocaine seizure Drug Allergy Active Reason For Referral Reason colon cancer screeni [...] Referral Priority Routine Referral Appointment Date 05/14/2024 REASON FOR VISIT annual visit/ must see 12-07-23, CBACK CBC, check geovanny on left coyle x 1 week Medications Medication SIG (Take, Route, Frequency, Duration) Notes Start Date End Date Status Folic Acid 400 MCG 1 tablet Orally Once a day for 30 day(s) Active Triamcinolone Acetonide 0.1 % 1 application Externally Once a day for 14 days 12/28/2023 Active Social History Tobacco Use: Social History [...] Problem Status W/U Status Risk Notes Problem [id number] Neutropenia, unspecified type (D70.9) Active confirmed Vital Signs Blood pressure systolic 94 mm Hg 12/28/19 24 Blood pressure diastolic 58 mm Hg 024 Height 67 in 12/28/2023 Weight 175 lbs 12/28/2023 BMI 27.41 kg/m2 12/28/2023 Encounters Encounter Location Date Provider Diagnosis Tino Mullins MD [address] [place] [address] [place] [phone] 12/28/2023 Tino Mullins History of anemia Z86.2 ; Annual physical exam Z00.00 ; Neutropenia, unspecified type D70.9 ; Mild eczema L30.9 and Depression screening Z13.31 Assessments Encounter Date Diagnosis (ICD Code) Assessment Notes Treatment Notes Treatment Clinical Notes Section Notes 12/28/2023 History of anemia (ICD-10 - Z86.2) stable, will continue to monitor 12/28/2023 Annual physical exam (ICD-10 - Z00.00) labs reviewed and discussed with patient, needs colonoscopy appt with dr mazariegos or hu 12/28/2023 Neutropenia, unspecified type (ICD-10 - D70.9) followed by hematology at [facility] 12/28/2023 Mild eczema (ICD-10 - L30.9) patient verblaized understanding of medicaton and directions for use 12/28/2023 Depression screening (ICD-10 - Z13.31) negative screen Plan Of Treatment Medication Medication Name Sig Start Date Stop Date Notes Triamcinolone Acetonide 0.1 % 1 applicat ion Externally Once a day for 14 days 12/28/2023 Treatment Notes Assessment Notes History of anemia stable, will continu e to monitor Annual physical exam labs reviewed and d iscussed with patient, needs colonoscopy appt with dr mazariegos or hu Neutropenia, unspecified type followed b y hematology at [facility] Mild eczema patient verblaized u nderstanding of medicaton and directions for use Depression screening negative screen Referrals Referral Date Details 12/28/2023 12/28/2023, colon ca ncer screening needs colonoscopy, Hector Mazariegos Next Appt Details Follow Up: 1 Year, Reason: Provider Name:Tino coburn, 12/25/2024 08:00:00 AM, [address], [address], [place], [phone], Provider Name:Tino coburn, 01/01/2025 01:00:00 PM, [address], [address], [place], [phone], Progress Notes * Sean PEREZBienvenidoB:1975 ( 48 yo F)Acc No.[id number]:12/28/2023 Progress Notes Patient:?Di Perez Provider:?Tino Mullins MD :1975???Age:48 Y???Sex:Female D ate:12/28/2023 Address:[address] [place], [place] [phone] Subjective: * Chief Complaints: * ???Annual visit/ must see CBACK CBCCheck geovanny on left coyle x 1 week * HPI: ???Depression Screening:?PHQ-9?Little interest or pleasure in doing things?Not at all,?Feeling down, depressed, or hopeless?Not at all,?Trouble falling or staying asleep, or sleeping too much?Not at all,?Feeling tired or having little energy?Not at all,?Poor appetite or overeating?Not at all,?Feeling bad about yourself or that you are a failure, or have let yourself or your family down?Not at all,?Trouble concentrating on things, such as reading the newspaper or watching television?Not at all,?Moving or speaking so slowly that other people could have noticed; or the opposite, being so fidgety or restless that you have been moving around a lot more than usual?Not at all,?Thoughts that you would be better off or of hurting yourself in some way?Not at all,?Total Score?0.?Interpretation and Intervention?Depression Screening Findings?Negative,?Follow-Up for Depression?: review of PHQ-9 found negative result, no follow-up needed.?Communication Needs:?Communication Needs?Does the patient have a hearing impairment?No,?Does the patient have a vision impairment??Yes,?If yes, what is the vision impairment??Glasses,?Does the patient have a cognition impairment??No.?SDOH Questions:?SDOH Questions?In the past year have you been worried about losing housing??No,?In the past year have you or any family members you live with been unable to get any of the following when it was really needed? Check all that apply:?None.? * ROS:?General/Constitutional:?Change in appetite?denies.?Chills?denies.?Fever?denies.?Ophthalmologic:?Blurred vision?denies.?Discharge?denies.?Pain?denies.?ENT:?Decreased hearing?denies.?Sore throat?denies.?Swollen glands?denies.?Endocrine:?Cold intolerance?denies.?Excessive thirst?denies.?Heat intolerance?denies.?Weight loss?denies.?Respiratory:?Cough?denies.?Shortness of breath at rest?denies.?Shortness of breath with exertion?denies.?Wheezing?denies.?Cardiovascular:?Chest pain at rest?denies.?Chest pain with exertion?denies.?Irregular heartbeat?denies.?Shortness of breath?denies.?Gastrointestinal:?Abdominal pain?denies.?Change in bowel habits?denies.?Diarrhea?denies.?Nausea?denies.?Rectal bleeding?denies.?Vomiting?denies .?Genitourinary:?Blood in urine?denies.?Difficulty urinating?denies.?Frequent urination?denies.?Urinary incontinence?Denies.?Musculoskeletal:?Painful joints?denies.?Weakness?denies.?Skin:?Patient complaining of?itching on anterior tibia.?Dry skin?denies.?Itching?denies.?Denies?Mole(s),? changes in moles, new moles or any lesions of concern.?Denies?Photosensitivity.?Rash?denies.?Neurologic:?Dizziness?denies.?Fainting?denies.?Headache?denies.? * Medical History:? * Surgical History:? * Hospitalization/Major Diagno stic Procedure:? * Family History:?Father: dece ased 47 yrs.?Mother: alive 74 yrs, diagnosed with Hypertension, Diabetes.?1 brother(s) , 4 sister(s) . 2 son(s) . .? Father Lymphoma 1 aszderu24 Lymphoma. * Social History:?Tobacco Use:?Tobacco Use/Smoking?Patient is a?nonsmoker,?Additional Findings: Tobacco Non-User?Current non-smoker, currently using no form of tobacco.?Drugs/Alcohol:?Alcohol Screen?Did you have a drink containing alcohol in the past year??No,?Points?0,?Interpretation?Negative.?Miscellaneous:?Caffeine: yes, frequency:. Children: yes. no Exercise. Living with: family. Marital status: single. Occupation: weeks/months/years, works full-time. no Travel outside of the [place]. * Medications:?TakingFolic Aci d 400 MCG Tablet 1 tablet Orally Once a dayMedication List reviewed and reconciled with the patientTaking Folic Acid 400 MCG Tablet 1 tablet Orally Once a dayMedication List reviewed and reconciled with the patient * Allergies:?Lidocaine: seizur eyes[Allergies Verified] Objective: * Vitals:?Ht: 67, Wt:175, BMI: 27.41, BP:94/58. * ???Past Orders: Lab:Complete Blood Count Aut o Diff * Order Date 10/25/2023 10/04/2023 Result: see back 12-28-23 White Blood Count 3.6?L (Ref Range: 4.8-10.8 X10*3/uL) 3.2?L (Ref Range: 4.8-10.8 X10*3/uL) Red Blood Count 4.01?L (Ref Range: 4.20-5.50 X10*6/uL) 3.66?L (Ref Range: 4.20-5.50 X10*6/uL) Hemoglobin 12.9 (Ref Range: 12.0-16.0 g/dl) 11.9?L (Ref Range: 12.0-16.0 g/dl) Hematocrit 39.2 (Ref Range: 37.0-47.0 %) 35.5?L (Ref Range: 37.0-47.0 %) Mean Corpuscular Volume 97.8 (Ref Range: 80.0-98.0 fL) 97.0 (Ref Range: 80.0-98.0 fL) Mean Corpuscular Hemoglobin 32.2 (Ref Range: 27.0-33.0 pg) 32.5 (Ref Range: 27.0-33.0 pg) Mean Corpuscular HGB Conc 32.9 (Ref Range: 31.0-35.0 g/dl) 33.5 (Ref Range: 31.0-35.0 g/dl) Red Cell Distribution Width 12.0 (Ref Range: 11.0-16.0 %) 12.3 (Ref Range: 11.0-16.0 %) Platelet Count 187 (Ref Range: 160-400 X10*3/uL) 188 (Ref Range: 160-400 X10*3/uL) Mean Platelet Volume 10.0 (Ref Range: 9.4-12.3 fL) 10.0 (Ref Range: 9.4-12.3 fL) Neutrophils Percent Auto 45.4 (Ref Range: 45-73 %) 52.5 (Ref Range: 45-73 %) Imm Gran Pct Auto 0.3 (Ref Range: 0.0-0.4 %) 0.3 (Ref Range: 0.0-0.4 %) Lymphocytes Percent Auto 40.8?H (Ref Range: 20-40 %) 34.6 (Ref Range: 20-40 %) Monocytes Percent Auto 8.5 (Ref Range: 2-11 %) 7.9 (Ref Range: 2-11 %) Eosinophils Percent Auto 4.4?H (Ref Range: 0-4 %) 4.4?H (Ref Range: 0-4 %) Basophils Percent Auto 0.6 (Ref Range: 0-2 %) 0.3 (Ref Range: 0-2 %) NRBC Pct Auto 0.0 (Ref Range: 0.0-0.2 /100WBC) 0.0 (Ref Range: 0.0-0.2 /100WBC) Neutrophils Absolute Auto 1.7?L (Ref Range: 2.0-8.3 x10*3/uL) 1.7?L (Ref Range: 2.0-8.3 x10*3/uL) Imm Gran Abs Auto 0.01 (Ref Range: 0.00-0.03 X10*3/uL) 0.01 (Ref Range: 0.00-0.03 X10*3/uL) Lymphocytes Absolute Auto 1.5 (Ref Range: 1.2-4.9 X10*3/uL) 1.1?L (Ref Range: 1.2-4.9 X10*3/uL) Monocytes Absolute Auto 0.3 (Ref Range: 0.1-1.2 X10*3/uL) 0.3 (Ref Range: 0.1-1.2 X10*3/uL) Eosinophils Absolute Auto 0.2 (Ref Range: 0.0-0.4 X10*3/uL) 0.1 (Ref Range: 0.0-0.4 X10*3/uL) Basophils Absolute Auto 0.0 (Ref Range: 0.0-0.2 X10*3/uL) 0.0 (Ref Range: 0.0-0.2 X10*3/uL) NRBC Abs Auto 0.000 (Ref Range: 0.0-0.012 X10*3/uL) 0.000 (Ref Range: 0.0-0.012 X10*3/uL) ???Lab:IRON PROFILE (Order Date - 10/04/2023) (Collection Date - 10/04/2023)?ValueReference Range?[id number] - mcg/dL?Total Iron Binding Btcbszto487975-773 - mcg/dL?Percent Iron Mdbeicvkmx65F75-04 - %?Unsaturated Iron Xanzhah779- ug/dL * Examination: ???General Examination: ?GENERAL APPEARANCE:?well developed, well nourished, in no acute distress.?HEAD:?normocephalic, atraumatic.?EYES:?pupils equal, round, reactive to light and accommodation, sclera non-icteric.?EARS:?normal.?ORAL CAVITY:?mucosa moist.?THROAT:?clear.?NECK/THYROID:?neck supple, full range of motion, no cervical lymphadenopathy, no bruits.?SKIN:?warm and dry, no suspicious lesions, abnormal left ant tibia with a 1/2 inch prutitic lesion.?HEART:?regular rate and rhythm, S1, S2 normal, no murmurs.?LUNGS:?clear to auscultation bilaterally.?BREASTS:?No mass, no lump.?ABDOMEN:?soft, nontender, nondistended, bowel sounds present, normal, no organomegaly , no masses palpable.?RECTAL EXAM:?done by diesel engine engineer.?FEMALE GENITOURINARY:?done by diesel engine engineer.?EXTREMITIES:?no clubbing, cyanosis, or edema.?NEUROLOGIC:?nonfocal, motor strength normal upper and lower extremities, sensory exam intact.? Assessment: * Assessment: 1.?Annual physical exam - Z0 0.00 (Primary)?2.?History of anemia - Z86.2?3.?Neutropenia, unspecified type - D70.9?4.?Mild eczema - L30.9?5.?Depression screening - Z13.31? Plan: * Treatment: 2.?History of anemia? Notes: stable, will continue to monitor.?? 3.?Neutropenia, unspecified type? Notes: followed by hematology at [facility].?? 4.?Mild eczema? Start Triamcinolone Acetonide Cream, 0.1 %, 1 application, Externally, Once a day, 14 days, 30.?? Notes: patient verblaized understanding of medicaton and directions for use.?? 5.?Depression screening? Notes: negative screen.?? 6.?Others? Referral To:Hector Mazariegos??Gastroenterology ?Reason:colon cancer screening needs colonoscopy * Procedure Codes:? * Preventive Medicine:? ??Counseling:?Care goal follow-up plan:?Counseling for abnormal BMI provided?Yes,?Above Normal BMI Follow-up?Giving encouragement to exercise.? * Follow Up:?1 Year * * Sign off status: Completed true * Provider:?Tino Mullins MD Date:?0 12/28/2023 Generated for David woodward/Torey/Kyle on:?10/06/2024 11:52 AM EDT History and Physical Notes * HPI (History of Present Illness) Category Sub-Category Detail Notes Category Not es Depression Screening PHQ-9 Little inte rest or pleasure in doing things: Not at all Feeling down, depressed, or hopeless: No t at all Trouble falling or staying asleep, or sl eeping too much: Not at all Feeling tired or having little energy: N ot at all Poor appetite or overeating: Not at all Feeling bad about yourself o r that you are a failure, or have let yourself or your family down: Not at all Trouble concentrating on thi ngs, such as reading the newspaper or watching television: Not at all Moving or speaking so slowly that other people could have noticed; or the opposite, being so fidgety or restless that you have been moving around a lot more than usual: Not at all Thoughts that you would be b nehemias off or of hurting yourself in some way: Not at all Total Score: 0 Interpretation and Intervention Depression Alex wynne Findings: Negative Follow-Up for Depression: : review of PH Q-9 found negative result, no follow-up needed SDOH Questions SDOH Questions In the past year have you been worried about losing housing?: No In the past year have you or any family members you live with been unable to get any of the following when it was really needed? Check all that apply:: None Communication Needs Communication Needs Does the patient have a hearing impairment: No Does the patient have a vision impairmen t?: Yes ?If yes, what is the vision impairment?: Glasses Does the patient have a cognition impair ment?: No Examination Category Sub-Category Detail Notes Category Not es General Examination GENERAL APPEARANCE: well dev eloped, well nourished, in no acute distress HEAD: normocephalic, atrau matic EYES: pupils equal, round, reactive to light and accommodation, sclera non- icteric EARS: normal THROAT: clear NECK/THYROID: neck supple, full ra nge of motion, no cervical lymphadenopathy, no bruits HEART: regular rate and rhy thm, S1, S2 normal, no murmurs LUNGS: clear to auscultatio n bilaterally ABDOMEN: soft, nontender, non distended, bowel sounds present, normal, no organomegaly , no masses palpable NEUROLOGIC: nonfocal, motor stre ngth normal upper and lower extremities, sensory exam intact SKIN: warm and dry, no rigo picious lesions, abnormal left ant tibia with a 1/2 inch prutitic lesion EXTREMITIES: no clubbing, cyanosi s, or edema BREASTS: No mass, no lump RECTAL EXAM: done by diesel engine engineer FEMALE GENITOURINARY: done by diesel engine engineer ORAL CAVITY: mucosa moist Consultation Request Notes Referral Date Referring Provider Referred Provider Not es 12/28/2023 Tino Mullins [facility] screening needs colonoscopy
--- OUTSIDE RECORDS SUMMARY | 2024-10-06 11:52 | XMS_ITS ---
Author Organization Tino Mullins MD Address [address] [place] [phone] Care Team Providers Care Regional Truck Driver Name Role Phone Tino Mullins Primary Care Provider [phone] Allergies Allergen (clinical drug ingredient) Drug/Non Drug Allergy documented on EMR Reaction Allergy Type Onset Date Status lidocaine Lidocaine seizure Drug Allergy Active REASON FOR VISIT cold coughing, congested x 5 days c/o productive cough congestion, runny nose will test for Covid before Telehealth, Video [phone] Medications Medication SIG (Take, Route, Frequency, Duration) Notes Start Date End Date Status Folic Acid 400 MCG 1 tablet Orally Once a day for 30 day(s) Active Triamcinolone Acetonide 0.1 % 1 application Externally Once a day for 14 days 12/28/2023 Active Amoxicillin-Pot Clavulanate 875-125 MG 1 tablet Orally every 12 hrs for 10 days 08/19/2024 Active Vital Signs Height 67 in 08/19/2024 Weight 170 lbs 08/19/2024 BMI 26.62 kg/m2 08/19/2024 weight at home is 170 BP not taken no temp Encounters Encounter Location Date Provider Diagnosis Tino Mullins MD [address] [place] [phone] 08/19/2024 Tino Mullins Acute non-recurrent maxillary sinusitis J01.00 Assessments Encounter Date Diagnosis (ICD Code) Assessment Notes Treatment Notes Treatment Clinical Notes Section Notes 08/19/2024 Acute non-recurrent maxillary sinusitis (ICD-10 - J01.00) patient verbalized understandingof medicationand directions for use Plan Of Treatment Medication Medication Name Sig Start Date Stop Date Notes Amoxicillin-Pot Clavulanate 875-125 MG 1 tablet Orally every 12 hrs for 10 days 08/19/2024 Treatment Notes Assessment Notes Acute non-recurrent maxillary sinusitis patient verbalized understandingof medicationand directions for use Next Appt Details Provider Name:Tino Britt ier, 12/25/2024 08:00:00 AM, [address] [place] [address], [address], [place], [place], [phone], Provider Name:Tino Britt ier, 01/01/2025 01:00:00 PM, [address] [place] [address], [address], [place], [place], [phone], Progress Notes * Dontae PEREZB:1975 ( 49 yo F)Acc No.[id number]:08/19/2024 Patient:?Di PEREZ Provider:?Tino Mullins MD :1975???Age:49 Y???Sex:Female D ate:08/19/2024 Address:[address] [place], [place] [phone] Subjective: * Chief Complaints: * ???cold coughing, congested x 5 days c/o productive cough congestion, runny nose will test for Covid before TelehealthVideo [phone] * HPI: ???Symptom(s):?Telehealth?Location of provider rendering services:?[address] [place] [address], [address],?Location of patient:?at address listed in demographics for today's visit,?Patient identification confirmed using:?Name, ,?Telehealth method:?Video conference where patient is visible to the provider of care,?Consent:?Patient verbally consented to treatment, Patient verbally consented to billing insurance company, Patient informed of any privacy concerns related to method of visit,?Total time spend talking with patient (minutes)?20.?patient is a 49 yo female video telehealth visit, started with sore throat and now with head congestion. getting worse in head. * ROS:?General/Constitutional:?Denies?Chills.?Denies?Fatigue.?Denies?Fever.?Denies?Headache.?ENT:?Patient denies?decreased sense of smell, any loss of taste, sore throat.?Denies?Sore throat.?Respiratory:?Admits?Cough.?Denies?Shortness of breath at rest.?Denies?Shortness of breath with exertion.?Admits?Sputum production.?Gastrointestinal:?Denies?Diarrhea.?Denies?Nausea.?Musculoskeletal:?Patient denies?muscle aches.?Peripheral Vascular:?Patient denies?red and blue toes.? * Medical History:? * Surgical History:? * Hospitalization/Major Diagno stic Procedure:? * Medications:?TakingFolic Aci d 400 MCG Tablet 1 tablet Orally Once a day Triamcinolone Acetonide 0.1 % Cream 1 application Externally Once a day Medication List reviewed and reconciled with the patientTaking Folic Acid 400 MCG Tablet 1 tablet Orally Once a day Taking Triamcinolone Acetonide 0.1 % Cream 1 application Externally Once a day Medication List reviewed and reconciled with the patient * Allergies:?Lidocaine: seizur eyes[Allergies Verified] Objective: * Vitals:?Ht: 67, Wt: 170, BMI :26.62, Wt-k.11. weight at home is 170? BP? not taken no temp. * Examination: ???General Examination: ?GENERAL APPEARANCE:?with coughing repeatedly.? Assessment: * Assessment: 1.?Acute non-recurrent maxil juan pablo sinusitis - J01.00 (Primary)??? Plan: * Treatment: * Procedure Codes:? * * Sign off status: Completed true * Provider:?Tino Mullins MD Date:?0 08/19/2024 Generated for David woodward/Torey/eTransmitting on:?10/06/2024 11:52 AM EDT History and Physical Notes * HPI (History of Present Illness) Category Sub-Category Detail Notes Category Not es Symptom(s) Telehealth Location of [facility] rendering services:: [address], [address] patient is a 49 yo female video telehealth visit, started with sore throat and now with head congestion. getting worse in head. Location of patient:: at address listed in demographics for today's visit Patient identification confirmed using:: Name, Telehealth method:: Video co nference where patient is visible to the provider of care Consent:: Patient verbally c onsented to treatment, Patient verbally consented to billing insurance company, Patient informed of any privacy concerns related to method of visit Total time spend talking with patient (m inutes): 20 Examination Category Sub-Category Detail Notes Category Not es General Examination GENERAL APPEARANCE: with coughing repeatedly
== END 2024-10-06 10:32 | disposition home or self-care (01) ==
LOC: HO.MAMMO 10:31
PROVIDERS: PCP Internal Medicine; Visit Provider Obstetrics & Gynecology
DX: Z12.31 Encounter for screening mammogram for malignant neoplasm of breast (principal)
CPT/HCPCS: 77063; 77067

== ENCOUNTER → 2024-10-06 10:45 | Outpatient (BNV) | payer OTHER, SELFPAY | PROVIDERS: PCP Internal Medicine; Visit Provider Internal Medicine | DX: Z12.31 Encounter for screening mammogram for malignant neoplasm of breast (principal) | CPT/HCPCS: 77063; 77067 ==

== ENCOUNTER 2024-11-04 13:31 | Outpatient (AMB) | payer OTHER, SELFPAY ==
--- NOTE | 2024-11-04 13:36 | MHC.OFFVIS ---
Intake Visit Reasons: Breast issues Maintenance Person: Maintenance Person Present (Carole) Accompanied by: Self / Same As Patient Allergies lidocaine Adverse Reaction (Verified 11/04/24 13:36) Seizure HPI Comments Details: Presenting complaining of left arm pit lump that. Few months ago, the patient saw her OBGYN at [facility] left armpit ultrasound was done, no reports available. 10/06/2024 screening mammogram was BI-RADS 2 The patient complaining of persistent left axillary tender lump no other complaints PFSH Medical History History of anemia Constipation JULIA III (cervical intraepithelial neoplasia grade III) with severe dysplasia Surgical History Hx of umbilical hernia repair H/O: hysterectomy Family History Paternal Aunt Breast cancer Paternal Aunt Cervical cancer Social History Are you a primary residential care facility manager to a significant other at home: No Do you presently have visiting nurse or other home services: No Patient Tobacco Use Status: Never used Tobacco Physical Exam Chest Chest palpation & inspection: normal inspection of the chest Breast/axilla inspection: normal inspection of the breasts Breast/axilla palpation: normal palpation of the breasts and axillary lymphadenopathy (Right axilla within normal, left axillary 2 x 2 cm tender lump) Assessment & Plan Assessment & Plan (1) Axillary lump: Comment: Left-sided Code(s): R22.30 - Localized swelling, mass and lump, unspecified upper limb Category: Medical Plan: Discussed with the patient the finding on physical exam, refer to general surgery for further management. Instructed the patient to call our office back in case a referral appointment is not scheduled, missed or canceled so that we will assist on rescheduling another appointment, the patient verbalized understanding agreed with the plan. Coding Level of Care Code Est Pt Level 3 (34910) Diagnoses Axillary lump R22.30
--- OUTSIDE RECORDS SUMMARY | 2024-11-04 16:30 | XMS_ITS ---
Author Organization [facility] Address [address] [place] [phone] Care Team Providers Care Blanket Cutter Hand Name Role Phone Harpreet ALEGRE, Tino Primary Care Provider Hector Vallejo Unavailable [phone] REASON FOR VISIT screening Encounters Encounter Location Date Provider Diagnosis [facility] Outpatient [address] [place] [phone] 09/12/2024 Hector Pierson Colon cancer scree ricci Z12.11 ; Diverticulosis of large intestine without perforation or abscess without bleeding K57.30 and Other hemorrhoids K64.8 Assessments Encounter Date Diagnosis (ICD Code) Assessment Notes Treatment Notes Treatment Clinical Notes Section Notes 09/12/2024 Colon cancer screening (ICD-10 - Z12.11) 09/12/2024 Diverticulosis of large intestine without perforation or abscess without bleeding (ICD-10 - K57.30) 09/12/2024 Other hemorrhoids (ICD-10 - K64.8) Plan Of Treatment No Information Progress Notes * SHAUNA, EMILYADOB:1975 ( 49 yo F)Acc No.[id number]:09/12/2024 COLON WITH MAC Patient:?NELLIE VILLATORO Provider:?Hector Pierson MD :1975???Age:49 Y???Sex:Female D ate:09/12/2024 Address:[address] [place], [place] [phone] Pcp:Tino Mullins MD Subjective: * Chief Complaints: * ???1. Screening. * Medical History:? Objective: * Vitals:? Assessment: * Assessment: 1.?Colon cancer screening - Z12.11 (Primary)???2.?Diverticulosis of large intestine without perforation or abscess without bleeding - K57.30???3.?Other hemorrhoids - K64.8??? Plan: * Treatment: * Procedure Codes:?21518 DIAGN OSTIC COLONOSCOPY, Modifiers: 33 * * The named appointment provid er may or may not be the originator of this progress note, and it is not deemed complete until electronically signed by the appointment provider. Sign off status: Pending * Provider:?Hector Pierson MD Date:? 025 Generated for David woodward/Troey/eTindiasmitting on:?11/04/2024 04:30 PM EDT
--- OUTSIDE RECORDS SUMMARY | 2024-11-04 16:30 | XMS_ITS | Clinical Summary ---
Author Organization [facility] ity Address [address] [place] [address] Care Team Providers Care Histotechnician Name Role Phone Blanca Perez MD Primary Care Provider [phone] Surgical History Surgery Date Site/Laterality Comments HERNIA [...] COVID-19 Vaccine ( season) 2024 Influenza Vaccine (Season Ended) 2025 IPV Vaccines Completed 12/27/1981, 02/20, 07/03/1977, Additional [...] age to complete this topic Meningococcal B Vaccine Aged Out No l onger eligible based on patient's age to complete [...] RESULTING AGENCY - 06/04/2020 3:45 PM EST [id number] THINPREP PAP, IMAGED: LOW-GRADE SQUAMOUS INTRAEPITHELIAL LESION [...] DIAGNOSIS. PAP HX NEG, LMP 05/11/20, Z12.4 Thnoy Sharp DO LAB CYTOLOGY ORDERABLES Final Result [...] Recently Relevant to Health Maintenance Care Teams Histotechnician Relationship Specialty Start Date End Date Blanca Perez MD [address] [place] [address] PCP - General Internal Medicine 08/17/11
--- OUTSIDE RECORDS SUMMARY | 2024-11-04 16:30 | XMS_ITS ---
Author Organization Tino Mullins MD Address [address] [place] [address] [address] [place] [phone] Care Team Providers Care Urban Designer Name Role Phone Tino Mullins Primary Care Provider REASON FOR VISIT Found lump under ? arm Encounters Encounter Location Date Provider Diagnosis Tino Mullins MD [address] [place] [address] [address] [place] [phone] 02/28/2024 Tino Mullins Plan Of Treatment Next Appt Details Provider Name:Tino Britt ier, 12/25/2024 08:00:00 AM, [address] [place] [address], [address] [facility], [place], [place], [phone], Provider Name:Tino Britt ier, 01/01/2025 01:00:00 PM, [address] [place] [address], [place] [address], [place], [place], [phone], Progress Notes * Sean PEREZBienvenidoB:1975 ( 48 yo F)Acc No.[id number]:02/28/2024 Patient:?Di Perez :1975???Age:48 Y???Sex:Female Address:[address] [place] [address], [address] * true * Date:? Generated for Printi ng/Faxing/eTransmitting on:?11/04/2024 04:29 PM EDT
--- OUTSIDE RECORDS SUMMARY | 2024-11-04 16:30 | XMS_ITS ---
Author Organization [facility] Address [address] [place] [address] Care Team Providers Care Irrigation Tax Assessor Collector Name Role Phone Tino Mullins MD Primary Care Provider Hector Vallejo Unavailable [phone] Allergies No Known Allergies REASON FOR VISIT [...] W/U Status Risk Notes Problem Chronic constipation (362052503) Chronic constipation (K59.09) Active confirmed Problem Colon cancer screening (720755279) Colon cancer screening (Z12.11) Active confirmed Vital Signs Temperature 98.0 degrees Fahrenheit 05/14/20 24 Blood pressure systolic 000 mm Hg 05/14/20 24 Blood pressure diastolic 00 mm Hg 024 Height 5 ft 5.5 in in 05/14/2024 Weight 171 lb 4 oz lbs 05/14/2024 BMI 28.06 kg/m2 05/14/2024 Encounters Encounter Location Date Provider Diagnosis [facility] [address] [place] [address] 05/14/2024 Hector Pierson Chronic constipation K59.09 and [...] * EMILY VILLATOROADOB:1975 ( 49 yo F)Acc No.[id number]:05/14/2024 Progress Notes Patient:?DI VILLATORO Provider:?Hector Pierson MD :1975???Age:49 Y???Sex:Female D ate:05/14/2024 Address:[address] [place] [address] Pcp:Tino Mullins MD Subjective: * Chief Complaints: [...] things such as prune juice or other tqtr-zen-tjpnqqp remedies to help with the bowel movement. [...] single. 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 ???Nonsmoker; no alcohol. * Medications:?TakingFolic Aci d [...] Procedure Codes:?3017F COLOR ECTAL CA SCREEN DOC [id number] TOBACCO NON-IISPL3644 BP SCR NOT PRFRM REC REASON NOS * Preventive Medicine:? ??Counseling:?Care goal follow-up plan:?Above Normal BMI Follow-up?Giving encouragement to exercise,?BMI management provided?Yes.? * Follow Up:?prn * * Sign off status: Completed true * Provider:?Hector Pierson MD Date:? 024 Generated for David woodward/Torey/Brittanysmitting on:?11/04/2024 04:29 PM EDT History and Physical Notes * HPI [...] things such as prune juice or other rtby-ukb-cwsaupm remedies to help with the bowel movement. [...]
--- OUTSIDE RECORDS SUMMARY | 2024-11-04 16:30 | XMS_ITS | Patient Health Record ---
Author Organization [facility] Address [address] [place] [address] Care Team Providers Care Beef Cattle Farmer Name Role Phone Tino Mullins MD Primary Care Provider Hector Vallejo Unavailable [phone] Allergies No Known Allergies Reason For Referral [...] Status Risk Notes Problem Colon cancer screening (199756669) Colon cancer screening (Z12.11) Active confirmed Problem Chronic constipation (966232996) Chronic constipation (K59.09) Active confirmed Vital Signs Temperature 98.0 degrees Fahrenheit 05/14/2024 Blood pressure diastolic 00 mm Hg 05/14/2024 Height 5 ft 5.5 in in 05/14/2024 Blood pressure systolic 000 mm Hg 05/14/2024 Weight 171 lb 4 oz lbs 05/14/2024 BMI 28.06 kg/m2 05/14/2024 Encounters Encounter Location Date Provider Diagnosis [facility] Out[facility] [address] [place], [place] [phone] 09/12/2024 Hector Pierson Colon cancer screeni ng Z12.11 ; Diverticulosis of large intestine without perforation or abscess without bleeding K57.30 and Other hemorrhoids K64.8 [facility] [address] [place] [address] 05/14/2024 Hector Pierson Chronic constipation K59.09 and Colon cancer screening Z12.11 Assessments Encounter Date Diagnosis (ICD Code) Assessment Notes Treatment Notes Treatment Clinical Notes Section Notes 09/12/2024 Colon cancer screening (ICD-10 - Z12.11) 09/12/2024 Diverticulosis of large intestine without perforation or abscess without bleeding (ICD-10 - K57.30) 05/14/2024 Colon cancer screening (ICD-10 - Z12.11) [...] to keep you advised of her progress. 09/12/2024 Other hemorrhoids (ICD-10 - K64.8) Plan Of Treatment Future Test Test Name Order Date COLONOSCOPY 05/14/2024 Insurance Providers Payer Name Payer Address Payer Phone Subscriber Number Group Number Insured Name Patient Relationship to Insured Coverage Start Date Coverage End Date [employer] [place] [address] [address] [place] [address] [id number] EMILY VILLATOROA Self - patient is the insured Medical (General) History Medical History History ICD Code Anemia due to previous heavy menses---titus d partial hysterectomy Constipation Denies OR,DM,CVA,Lung disease,renal dise ase Surgical History Surgery Date(Month/Year) Partial hysterectomy Umbilical hernia
--- OUTSIDE RECORDS SUMMARY | 2024-11-04 16:31 | XMS_ITS | Patient Health Record ---
Author Organization Tino Mullins MD Address [address] [place] [phone] Care Team Providers Care Paint Spraying Machine Operator Helper Name Role Phone Tino Mullins Primary Care Provider [phone] Allergies Allergen (clinical drug ingredient) Drug/Non Drug Allergy documented on EMR Reaction Allergy Type Onset Date Status Lidocaine seizure Drug Allergy Active Results Component Value Reference Range Notes Pap Smear Reviewed date:06/26/2024 03:28:26 PM Interpretation: Performing Lab:[facility], [address] [place] [phone] Notes/Report: Name: AnaSean wigginsgurwinder Guzman Age/Sex: 49/F : 1975 Unit#: [id number] Attend Dr: Jake Freeman MD Re06/23/24 Status : DEP REF Location: [facility] Disch: SPEC : [id number] REC STATUS: LISA GLASS NUM: [id number] MIGUEL: 06/23/[address] [facility] [address]: Jake Freeman MD ENTERED: 06/23/24-13 [...] [facility] [address] [place] [address] Jake Freeman MD [facility] [address] [place] [address] Signed (si gnature on file) PIO Mazariegos (ASC) 06/26/24 1241 END OF REPORT MM tomosynthesis screening B I Reviewed date:10/13/2024 05:24:10 PM Interpretation: Performing Lab: Notes/Report: [address] [place] [address] Mammography Report Signed Patient: Di Perez MR#: [id number] 8 : 1975 Acct:[id number] Age/Sex: 49 / F ADM Date: 10/06/24 Loc: HO.MAMMO Attending Dr: Jake Freeman MD Ordering Physician: Jake Freeman MD Results: 2Benign Findings Date of Service: 10/06/24 Follow Up: 1 Year From Orig [facility] Mammogram Procedure(s): MM tomosynthesis screening BI Accession Number(s): [id number] cc: Tino Mullins MD; Jake Freeman MD EXAMINATION: MM SCREENING DIGITAL BREAST TOMOSYNTHESIS, BILATERAL CLINICAL INFORMATION: Screening. Asymptomatic. COMPARISON: Mammography: Comparison is made with available priors TECHNIQUE: Digital breast mammography with tomosynthesis is performed in both the craniocaudal and mediolateral oblique views along with computer-aided detection (CAD). FINDINGS: The breasts are heterogeneously dense, which may obscure small masses (ACR BI-RADS breast composition Category c). Bilateral circumscribed oval masses which wax and wane some were demonstrated to be simple cyst on prior ultrasounds. There are no significant masses, abnormal calcifications, or other abnormalities. MM/MM tomosynthesis screening BI IMPRESSION: No mammographic evidence of malignancy. ASSESSMENT: BI-RADS BI-RADS 2 - Benign Findings RECOMMENDATION: Routine annual mammography screening. 1 year F/U This examination should not preclude the clinical evaluation of a suspicious palpable abnormality. This patient's information was entered into a reminder system with a target due date for their next mammogram. Electronically signed by: Minerva De La Torre DO 10/12/2024 07:50 PM EDT Dictated By: Minerva De La Torre DO Signed By: <Electronically signed by Minerva De La Torre DO in OV> 10/12/24 1950 DD/ 1045 TD/TT: 10/06/24 1058 Embossing Unit Operator: [address] [place] [address] Mammography Report Signed Patient: Di Perez MR#: [id number] 8 : 1975 Acct:[id number] Age/Sex: 49 / F ADM Date: 10/06/24 Loc: HO.MAMMO Attending Dr: Jake Freeman MD Ordering Physician: Jake Freeman MD Results: 2Benign Findings Date of Service: Follow Up: 1 Year From Orig inal Mammogram Procedure(s): MM bakari osynthesis screening BI Accession Number(s): [id number] cc: Tino Mullins MD; Jake Freeman MD EXAMINATION: MM SCREENING DIGITAL BREAST TOMOSYNTHESIS, BILATERAL CLINICAL INFORMATION: Screening. Asymptomatic. COMPARISON: Mammography: Compari son is made with available priors TECHNIQUE: Digital breast mammo graphy with tomosynthesis is performed in both the craniocaudal and med iolateral oblique views along with computer-aided detection (CAD). FINDINGS: The breasts are hete rogeneously dense, which may obscure small masses (ACR BI-RADS breast composition Category c). Bilateral circumscri bed oval masses which wax and wane some were demonstrated to be s imple cyst on prior ultrasounds. There are no signifi cant masses, abnormal calcifications, or other abnormalities. M M/MM tomosynthesis screening BI IMPRESSION: No mammographic evid ence of malignancy. ASSESSMENT: BI-RADS BI-RADS 2 - Benign Findings RECOMMENDATION: Routine annual mammo graphy screening. 1 year F/U This examination brea uld not preclude the clinical evaluation of a suspicious palpable abnormality. This patient's infor mation was entered into a reminder system with a target due date for their next mammogram. 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, was told a doctor to doctor must [...] Problem Status W/U Status Risk Notes Problem 789681932 Neutropenia, unspecified type (D70.9) Active confirmed Problem 875777690 H/O: hysterectom y (Z90.710) Active confirmed Problem 886013845 History of anemi a (Z86.2) Active confirmed [...] Date Provider Diagnosis Tino Mullins MD [address] [place] [address] Drive [address] [place] [phone] 12/28/2023 Tino Mullins History of anemia Z86.2 ; Annual physical exam Z00.00 ; Neutropenia, unspecified type D70.9 ; Mild eczema L30.9 and Depression screening Z13.31 Tino Mullins MD [address] [place] [phone] 02/28/2024 Tino Mullins MD [address] [place] [address] Drive [address] [place] [phone] 08/19/2024 Tino Mullins Acute non-recurrent maxillary sinusitis [...] (ICD-10 - D70.9) followed by hematology at [facility] 12/28/2023 Mild eczema (ICD-10 - L30.9) patient verblaized understanding of medicaton and directions for use 12/28/2023 Depression screening (ICD-10 - Z13.31) negative screen Plan Of Treatment Next Appt Details Provider Name:Tino coburn, 12/25/2024 08:00:00 AM, [address] [place] [address], [address], [phone], Provider Name:Tino coburn, 01/01/2025 01:00:00 PM, [address], [address], [place], [place], [phone], Insurance Providers Payer Name Payer Address Payer Phone Subscriber Number Group Number Insured Name Patient Relationship to Insured Coverage Start Date Coverage End Date [employer] [address] [address] [place] [phone] [id number] Di Perez Self - patient is the insured Medical (General) History Medical History History ICD Code brother and father of non hodkins l ymphoma braca negative
--- OUTSIDE RECORDS SUMMARY | 2024-11-04 16:31 | XMS_ITS ---
Author Organization Tino Mullins MD Address [address] [place] [phone] Care Team Providers Care Sports Medicine Trainer Name Role Phone Tino Mullins Primary Care Provider Allergies Allergen (clinical drug ingredient) Drug/Non Drug Allergy documented on EMR Reaction Allergy Type Onset Date Status Lidocaine seizure Drug Allergy Active REASON FOR VISIT cold coughing, congested x 5 days c/o productive cough congestion, runny nose will test for Covid before Telehealth, Video [phone] Medications Medication SIG (Take, Route, Frequency, Duration) [...] Tino Mullins MD [address] [place] [phone] 08/19/2024 Tino Mullins Acute non-recurrent maxillary sinusitis [...] Provider Name:Tino Britt ier, 12/25/2024 08:00:00 AM, [address] [place] [address], [address], [place], [place], [phone], Provider Name:Tino Britt ier, 01/01/2025 01:00:00 PM, [address] [place] [address], [address], [place], [place], [phone], Progress Notes * Dontae PEREZB:1975 ( 49 yo F)Acc No.[id number]:08/19/2024 Patient:?Di PEREZ Provider:?Tino Mullins MD :1975???Age:49 Y???Sex:Female D ate:08/19/2024 Address:[address] [place], [place] [phone] Subjective: * Chief Complaints: * ???cold coughing, congested x 5 days c/o productive cough congestion, runny nose will test for Covid before TelehealthVideo [phone] * HPI: ???Symptom(s):?Telehealth?Location of provider rendering services:?[address] [place] [address], [address],?Location of patient:?at address listed in [...] MD Date:?0 08/19/2024 Generated for David woodward/Torey/eTransmitting on:?11/04/2024 04:30 PM EDT History and Physical Notes * HPI (History of Present Illness) Category Sub-Category Detail Notes Category Not es Symptom(s) Telehealth Location of [facility] rendering services:: [address], [address] [...]
--- OUTSIDE RECORDS SUMMARY | 2024-11-04 16:31 | XMS_ITS ---
Author Organization Tino Mullins MD Address [address] [place], [place] [phone] Care Team Providers Care Spiral Tube Winder Helper Name Role Phone Tino Mullins Primary Care Provider Allergies Allergen (clinical drug ingredient) Drug/Non Drug Allergy documented on EMR Reaction Allergy Type Onset Date Status Lidocaine seizure Drug Allergy Active Reason For [...] Problem Status W/U Status Risk Notes Problem 356475596 Neutropenia, unspecified type (D70.9) Active confirmed Vital Signs Blood pressure systolic 94 mm Hg 12/28/19 24 Blood pressure diastolic 58 mm Hg 024 Height 67 in 12/28/2023 Weight 175 lbs 12/28/2023 BMI 27.41 kg/m2 12/28/2023 Encounters Encounter Location Date Provider Diagnosis Tino Mullins MD [address] [place] [address] [place] [phone] 12/28/2023 Tino Mullins History of anemia Z86.2 [...] (ICD-10 - D70.9) followed by hematology at [facility] 12/28/2023 Mild eczema (ICD-10 - L30.9) patient [...] unspecified type followed b y hematology at [facility] Mild eczema patient verblaized u nderstanding of medicaton and directions for use Depression screening negative screen Referrals Referral Date Details 12/28/2023 12/28/2023, colon ca ncer screening needs colonoscopy, Hector Mazariegos Next Appt Details Follow Up: 1 Year, Reason: Provider Name:Tino coburn, 12/25/2024 08:00:00 AM, [address], [address], [place], [phone], Provider Name:Tino coburn, 01/01/2025 01:00:00 PM, [address], [address], [place], [phone], Progress Notes * SHAUNASean COLBERTBienvenidoB:1975 ( 48 yo F)Acc No.[id number]:12/28/2023 Progress Notes Patient:?Di Perez Provider:?Tino Mullins MD :1975???Age:48 Y???Sex:Female D ate:12/28/2023 Address:[address] [place], [place] [phone] Subjective: * Chief Complaints: * ???Annual visit/ [...] 2 son(s) . .? Father Lymphoma 1 [id number] Lymphoma. * Social History:?Tobacco Use:?Tobacco Use/Smoking?Patient is [...] Date - 10/04/2023) (Collection Date - 10/04/2023)?ValueReference Range?Yfrl84791-277 - mcg/dL?Total Iron Binding Oonvwsmx714970-155 - mcg/dL?Percent Iron Nweyairywe76I80-74 - %?Unsaturated Iron Vyavnbl562- ug/dL * Examination: ???General Examination: ?GENERAL APPEARANCE:?well [...] organomegaly , no masses palpable.?RECTAL EXAM:?done by clinical account manager.?FEMALE GENITOURINARY:?done by clinical account manager.?EXTREMITIES:?no clubbing, cyanosis, or edema.?NEUROLOGIC:?nonfocal, motor strength normal upper and lower extremities, sensory exam intact.? Assessment: * Assessment: 1.?Annual physical exam - Z0 0.00 (Primary)?2.?History of anemia - Z86.2?3.?Neutropenia, unspecified type - D70.9?4.?Mild eczema - L30.9?5.?Depression screening - Z13.31? Plan: * Treatment: 2.?History of anemia? Notes: stable, will continue to monitor.?? 3.?Neutropenia, unspecified type? Notes: followed by hematology at [facility].?? 4.?Mild eczema? Start Triamcinolone Acetonide Cream, 0.1 [...] MD Date:?0 12/28/2023 Generated for David woodward/Torey/Kyle on:?11/04/2024 04:30 PM EDT History and Physical [...] mass, no lump RECTAL EXAM: done by clinical account manager FEMALE GENITOURINARY: done by clinical account manager ORAL CAVITY: mucosa moist Consultation Request Notes Referral Date Referring Provider Referred Provider Not es 12/28/2023 Tino Mullins Robert colon [facility] er screening needs colonoscopy
== END 2024-11-04 13:51 | disposition home or self-care (01) ==
LOC: HO.HWS 13:31
PROVIDERS: PCP Internal Medicine; Visit Provider Obstetrics & Gynecology
DX: R22.30 Localized swelling, mass and lump, unspecified upper limb (principal)
CPT/HCPCS: 99213

== ENCOUNTER → 2024-11-04 13:31 | Outpatient (BNVA) | payer OTHER, SELFPAY | PROVIDERS: PCP Internal Medicine; Visit Provider Obstetrics & Gynecology ==

== ENCOUNTER 2024-12-25 09:14 | Outpatient (REF) | payer OTHER, SELFPAY ==
[2024-12-25 09:51] LABS: MANUAL DIFF FLAG NO
--- OUTSIDE RECORDS SUMMARY | 2024-12-25 10:03 | XMS_ITS ---
Author Organization [facility] Address [address] [place] [address] Care Team Providers Care Knot Bumper Name Role Phone Tino Mullins MD Primary Care Provider Hector Vallejo Unavailable [phone] Allergies No Known Allergies REASON FOR VISIT [...] W/U Status Risk Notes Problem Chronic constipation (338369244) Chronic constipation (K59.09) Active confirmed Problem Colon cancer screening (526591097) Colon cancer screening (Z12.11) Active confirmed Vital Signs Temperature 98.0 degrees Fahrenheit 05/14/20 24 Blood pressure systolic 000 mm Hg 05/14/20 24 Blood pressure diastolic 00 mm Hg 024 Height 5 ft 5.5 in in 05/14/2024 Weight 171 lb 4 oz lbs 05/14/2024 BMI 28.06 kg/m2 05/14/2024 Encounters Encounter Location Date Provider Diagnosis [facility] [address] [place] [address] 05/14/2024 Hector Pierson Chronic constipation K59.09 and [...] * EMILY VILLATOROADOB:1975 ( 49 yo F)Acc No.[id number]:05/14/2024 Progress Notes Patient:?DI VILLATORO Provider:?Hector Pierson MD :1975???Age:49 Y???Sex:Female D ate:05/14/2024 Address:[address] [place] [address] Pcp:Tino Mullins MD Subjective: * Chief Complaints: [...] things such as prune juice or other amnn-fwx-gfdbqym remedies to help with the bowel movement. 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 * Medications:?TakingFolic Aci d [...] Procedure Codes:?3017F COLOR ECTAL CA SCREEN DOC FQY7151A TOBACCO NON-YBLPO9651 BP SCR NOT PRFRM REC REASON NOS * Preventive Medicine:? ??Counseling:?Care goal follow-up plan:?Above Normal BMI Follow-up?Giving encouragement to exercise,?BMI management provided?Yes.? * Follow Up:?prn * * Sign off status: Completed true * Provider:?Hector Pierson MD Date:? 024 Generated for David woodward/Torey/eTindiasmitting on:?12/25/2024 10:03 AM EDT History and Physical Notes * [...] things such as prune juice or other xpwo-xgb-kjxhlap remedies to help with the bowel movement. [...]
[2024-12-25 10:42] LABS: Appearance Urine Cloudy; Color Urine Yellow; Glucose Urine UA Negative (Negative); Leukocyte Esterase Urine Negative (Negative); Nitrite Urine Negative (Negative); PH 5.5 (5.0-9.0); Specific Gravity - Urine >= 1.030 (1.005-1.025); Urine Blood Negative (Negative); Urine Ketones Trace mg/dL (Negative); Urine Protein Trace mg/dL (Neg-Trace)
[2024-12-25 10:46] LABS: Basophils Percent Auto 0.7 % (0-2); Eosinophils Absolute Auto 0.1 X10*3/uL (0.0-0.4); Eosinophils Percent Auto 4.3 % (0-4); Haptoglobin 12 mg/dL (35-250); Hematocrit 35.9 % (37.0-47.0); Hemoglobin 11.7 g/dl (12.0-16.0); Immature Retic Fraction 8.6 % (3.0-15.9); Lymphocytes Absolute Auto 1.2 X10*3/uL (1.2-4.9); Lymphocytes Percent Auto 39.1 % (20-40); Mean Corpuscular HGB Conc 32.6 g/dl (31.0-35.0); Mean Corpuscular Hemoglobin 31.7 pg (27.0-33.0); Mean Corpuscular Volume 97.3 fL (80.0-98.0); Mean Platelet Volume 10.2 fL (9.4-12.3); Monocytes Absolute Auto 0.2 X10*3/uL (0.1-1.2); Monocytes Percent Auto 6.3 % (2-11); Neutrophils Absolute Auto 1.5 x10*3/uL (2.0-8.3); Neutrophils Percent Auto 49.6 % (45-73); Platelet Count 209 X10*3/uL (160-400); Red Blood Count 3.69 X10*6/uL (4.20-5.50); Red Cell Distribution Width 12.4 % (11.0-16.0); Retic HGB Equivalent 35.3 pg (30.0-35.0); Reticulocyte Percent 1.3 % (0.5-1.8); Reticulocytes Absolute 0.049 X10*6/uL (0.026-0.095)
[2024-12-25 10:55] LABS: Bacteria Urine 4+ (None Seen); RBC Urine 0-2 /HPF (0-2); UACC Culture Trigger YES
[2024-12-25 11:00] LABS: Alanine Aminotransferase 13 U/L (0-31); Albumin Level 4.6 g/dL (3.5-5.0); Alkaline Phosphatase 55 U/L (39-117); Anion Gap 9 (12-20); Aspartate Amino Transferase 21 U/L (5-31); Bilirubin Total 0.4 mg/dL (0.0-1.0); Blood Urea Nitrogen 13 mg/dL (9-16); Calcium 9.7 mg/dL (8.4-10.2); Carbon Dioxide 27 mmol/L (22-29); Chloride 108 mmol/L (96-108); Cholesterol 207 mg/dL (<200); Estimated Glomerular Filt Rate > 60; Glucose Fasting 77 mg/dL (60-99); HDL Cholesterol 66 mg/dL (>40); Iron 77 mcg/dL (30-160); LDL Cholesterol Calculated 129 mg/dL (<100); Percent Iron Saturation 31 % (15-50); Potassium 4.1 mmol/L (3.3-5.1); Sodium 140 mmol/L (135-145); Total Iron Binding Capacity 251 mcg/dL (228-428); Total Protein 7.5 g/dL (6.5-8.0); Triglycerides 64 mg/dL (<150); Unsaturated Iron Binding 174 ug/dL
[2024-12-25 11:20] LABS: Folate 12.7 ng/mL (> or = 4.0)
[2024-12-30 20:22] LABS: PNH Abnormal Cells Yes; PNH Abnormal Cells % As below; PNH Clinical Information NOT PROVIDED; PNH Number of Markers 8; PNH Specimen Type PERIPHERAL BLOOD; PNH Viability 88 %
== END 2024-12-25 09:15 | disposition home or self-care (01) ==
LOC: HO.LAB 09:14
PROVIDERS: Absent Provider Internal Medicine; PCP Internal Medicine; Visit Provider Internal Medicine Hematology
DX: Z00.00 Encounter for general adult medical examination without abnormal findings (principal); D70.9 Neutropenia, unspecified; Z13.6 Encounter for screening for cardiovascular disorders
CPT/HCPCS: 36415; 80053; 80061; 81001; 82746; 83010; 83540; 85025; 85045; 87086; 88184; 88185

== ENCOUNTER 2024-12-25 13:46 | Outpatient (AMB) | payer OTHER, SELFPAY ==
--- NOTE | 2024-12-25 13:53 | A.OFFVIS_ITS ---
Vital Signs 12/25/24 14:00 Height 5 ft 5.5 in Weight 138 lb BMI 22.6 BP 117/75 Blood Pressure Location Rt brachial Position Sitting Pulse 85 Intake Visit Reasons: Mass/ lump~ RT axilla Intake Note: Patient referred by Dr. Freeman for mass/ lump on Lt axilla. First noticed 6m. Patient c/o: decreased in size since first noticed. Tender to touch. Reports paternal aunt from breast CA. Mammo: 10-06-2024 Instructor Apparel Manufacture Required: No Accompanied by: Self / Same As Patient Allergies lidocaine Adverse Reaction (Verified 12/25/24 13:58) Seizure Medication List - Last Reconciled 12/25/[address] MD folic acid 1 mg PO DAILY HPI HPI Mass/ lump~ RT axilla: Details: [age] year female referred for a question of a left breast mass. She says that she noticed this a few months ago. She says at some point this seems to be bigger and ?swollen?. She says that the size is gone down significantly. She did undergo a mammogram last September, and this does not suggest any breast pathology nor any axillary lymphadenopathy. [facility] Medical History History of anemia Constipation JULIA III (cervical intraepithelial neoplasia grade III) with severe dysplasia Surgical History Hx of umbilical hernia repair H/O: hysterectomy Family History Paternal Aunt Breast cancer Paternal Aunt Cervical cancer Social History Are you a primary assistant child care teacher to a significant other at home: No Do you presently have visiting nurse or other home services: No Patient Tobacco Use Status: Never used Tobacco Review of Systems Const Denies chills and Denies fever(s) Card Denies chest pain, Denies dyspnea and Denies dyspnea on exertion Resp Denies cough, Denies dyspnea and Denies dyspnea on exertion GI Denies hematochezia and Denies change in bowel habits Denies hematuria Musc Denies back pain and Denies limited range of motion Neuro Denies focal weakness and Denies convulsions Psych Denies depression and Denies mood swings Physical Exam Vital Signs: Last Vital Signs Pulse 85 12/25/24 14:00 BP 117/75 12/25/24 14:00 BMI result Body Mass Index 22.6 Const General: comfortable and no acute distress Orientation/consciousness: patient oriented x3 Neck Neck: Yes no lymphadenopathy Chest Other: Exam of the left axilla shows what appears to be a small cystic induration suggestive of an epidermal cyst; there is no lymphadenopathy in the axilla Resp Auscultation: clear to auscultation bilaterally Cardio Rhythm: regular rhythm GI Palpation (GI): Soft to palpation, nontender and no guarding Neuro General: patient oriented x3 Assessment & Plan Assessment & Plan (1) Axillary lump: Comment: Left-sided Code(s): R22.30 - Localized swelling, mass and lump, unspecified upper limb Category: Medical Plan: This appears to be an epidermal cyst. This has gone down in size significantly. She denies any tenderness. I have reviewed her mammogram and this does not suggest any axillary lymphadenopathy I told her therefore that if this bothers down the line, we can plan on excising this which can be done under local anesthesia. I told her that if she has any concerns , she is welcome to come back to the office to be re-evaluated. She is comfortable with the plan. Coding Level of Care Code New Pt Level 3 (97942) Diagnoses Axillary lump R22.30
[2024-12-25 14:00] VITALS: BP 117/75; PULSE 85; BMI 22.6
== END 2024-12-25 14:10 | disposition home or self-care (01) ==
LOC: HO.HGS 13:47
PROVIDERS: PCP Internal Medicine; Visit Provider Surgery
DX: R22.30 Localized swelling, mass and lump, unspecified upper limb (principal)
CPT/HCPCS: 99203

== ENCOUNTER 2025-06-29 08:23 | Outpatient (AMB) | payer OTHER, SELFPAY ==
--- NOTE | 2025-06-29 08:26 | MHC.OFFVIS ---
Vital Signs 06/29/25 08:33 Height 5 ft 5.5 in Weight 168 lb BMI 27.5 BP 98/60 Intake Visit Reasons: Annual Digital Engineer Required: No Digital Engineer Name: no concerns Accompanied by: Self / Same As Patient Allergies lidocaine Adverse Reaction (Verified 06/29/25 08:35) Seizure Is last menstrual period known: No (hysterectomy) HPI Comments Details: Presenting for annual exam. No complaints. Last Pap/HPV was negative in 07/15 Last Mammogram was BI-RADS 2 in 10/14 Last Colonoscopy was done in 09/16, the recommendation was to repeat in 10 years [facility] Medical History History of anemia Constipation JULIA III (cervical intraepithelial neoplasia grade III) with severe dysplasia Surgical History Hx of umbilical hernia repair H/O: hysterectomy Family History (Updated 06/29/25 @ 08:39 by Pauline Bush CMA) Paternal Aunt Breast cancer Paternal Aunt Cervical cancer Mother HTN (hypertension) Other Diabetes Social History (Updated 06/29/25 @ 08:40 by Pauline Bush CMA) Household Members: Family Housing: House Are you a primary day care worker to a significant other at home: No Do you presently have visiting nurse or other home services: No Alcohol intake: former Patient Tobacco Use Status: Never used Tobacco Current occupational status: employed Current occupation: Accounting for [employer] Sexually active: No Sexual orientation: Straight/Heterosexual Gender identity: Female Female Reproductive History Menstrual Total pregnancies: 4 Full term: 2 Number of Living Children: 2 Ab induced: 2 Date of last pap smear: 06/23/24 Date of Mammogram: 10/06/24 Review of Systems Const All systems reviewed & are unremarkable except as noted in HPI and below Card Reports as per HPI Resp Reports as per HPI GI Reports as per HPI and Reports no additional complaints Reports as per HPI Physical Exam Vital Signs: Last Vital Signs BP 98/60 06/29/25 08:33 BMI result Body Mass Index 27.5 Const General: cooperative, healthy appearing and comfortable Chest Chest palpation & inspection: normal inspection of the chest and normal palpation of entire chest wall Breast/axilla inspection: normal inspection of the breasts and normal inspection of the axillae Breast/axilla palpation: normal palpation of the breasts, normal palpation of the axillae and no axillary lymphadenopathy Resp Effort & Inspection: normal respiratory effort Auscultation: clear to auscultation bilaterally Percussion: percussion normal Cardio Palpation: normal PMI Rate: regular rate Rhythm: regular rhythm Heart sounds: no murmurs and no rubs Peripheral pulses: Peripheral pulses 2+ throughout GI Inspection: Yes normal to inspection Palpation (GI): Soft to palpation, nontender, no guarding, not rigid and No hepatosplenomegaly present Percussion: Yes normal to percussion Auscultation: normal bowel sounds Rectal Exam - Female: deferred General: Yes bladder normal to palpation External Female Exam: No lesion Speculum Exam - Vagina: normal appearance of the vagina, normal palpation, normal vaginal discharge and not erythematous Speculum Exam - Cervix: normal appearance of the cervix and normal palpation Bimanual exam- vagina & uterus: normal bimanual exam, normal palpation, uterine size normal, bladder normal to palpation, consistency normal and normal palpation Bimanual Exam- Adnexa, other: normal adnexae, no masses and no tenderness Assessment & Plan Assessment & Plan (1) Well woman exam: Code(s): Z01.419 - Encounter for gynecological examination (general) (routine) without abnormal findings Category: Medical Plan: Co testing not indicated this year. Counseled the patient about the recommended dietary allowance of 1200 mg of Calcium & 600 IU of vitamin D. Instructions given to patient to schedule next screening Mammogram in 10/15. The patient was instructed to perform monthly self-breast exams and schedule annual exam in a year. All questions answered and the patient verbalized understanding. Coding Level of Care Code Est Pt Prev Care 40-64y(34215) Diagnoses Well woman exam Z01.419
[2025-06-29 08:33] VITALS: BP 98/60; BMI 27.5
== END 2025-06-29 09:11 | disposition home or self-care (01) ==
LOC: HO.HWS 08:23
PROVIDERS: PCP Internal Medicine; Visit Provider Obstetrics & Gynecology
DX: Z01.419 Encounter for gynecological examination (general) (routine) without abnormal findings (principal)
CPT/HCPCS: 99396; 99459